=== PATIENT | female | born 1990 | race Hispanic/Latino ===

== ENCOUNTER 2025-02-06 10:57 | Inpatient (IN) | payer OTHER ==
[~2025-02-06] VITALS: Ht 157.5 cm; Wt 52.3 kg
[2025-02-06] VITALS (23 sets, daily range): BP systolic 104–124; BP diastolic 63–73; PULSE 78–100; RESP 15–19; TEMP 97.6–98.5; O2SAT 99–100
[~2025-02-06 10:57] MED LIST: CHOL50004 PO; GLUC500T12 PO; MILK175C5 PO; OMEGA3 PO; PRAS25CA9 PO; THIO300C PO
[2025-02-06 11:30] LABS: IMMATURE GRANULOCYTE ABSOLUTE 0.02 K/uL (0-1); NUCLEATED RED BLOOD CELLS 0.0 % (0.0-0.19); PLATELET COUNT (AUTO) 415 K/uL (130-400); RED BLOOD CELL COUNT(AUTO) 3.72 MIL/uL (4.00-5.50); RED CELL DISTRIBUTION WIDTH 19.8 % (11.0-15.5); WHITE BLOOD COUNT (AUTO) 8.1 K/uL (4.8-10.8)
[2025-02-06 11:37] LABS: INR 1.12 (0.85-1.15)
[2025-02-06 11:39] LABS: CREATININE 0.4 mg/dL (0.5-1.0); GLOMERULAR FILTR. RATE CALC 133.0 mL/min (>90); GLUCOSE,RANDOM 91.0 mg/dL (70-105); SODIUM SERUM 138.0 mmol/L (136-145); UREA NITROGEN, BLOOD 23.0 mg/dL (7-18)
[2025-02-06] MEDS: 0.9%NACL 1000ML 1,000 ML IV ONE (11:46)
[2025-02-06 11:52] LABS: ASPARTATE AMINOTRANSFERASE 252.0 U/L (10-37); CREATINE KINASE, TOTAL 114.0 U/L (21-232); TOTAL PROTEIN, SERUM 8.3 g/dL (6.0-8.3)
--- NOTE | 2025-02-06 12:50 | NUR ---
GI DR CHANG CONSULTED ORDERS RECIEVED
--- NOTE | 2025-02-06 13:14 | HP ---
[facility] H[facility]ORY [facility] PHYS[facility] Date of Service: Feb 06, 2025 Time of Service: 13:14 HISTORY OF PRESENT ILLNESS: Date of service: 02/06/2025, patient was seen in ER room 13 34-year-old female with underlying history of ulcerative colitis currently not on any medication therapy, prior history of variceal bleed in 2022, anemia presented to the ER for further evaluation of tarry stool. Symptoms started close to 7:00 a.m. today and patient reports having three episodes of tarry stool. Denies any coffee-ground emesis, hematemesis or hematochezia. Patient is followed by Dr. Burrows with Gastroenterology as outpatient. Has a previous history of upper GI bleed in 2022 requiring variceal banding. She denies previously being diagnosed with liver cirrhosis. Denies any alcohol history. She reports having family history of liver disease with father needing liver transplantation. She thinks that father had history of fatty liver disease. Patient reports having had history of ulcerative colitis since 2009. Reports that UC symptoms have been in remission over the last 4 years. She is currently doing dietary and lifestyle modification for management of ulcerative colitis. Denies having had any UC flare recently. She denies taking any medications for ulcerative colitis. She has not seen Dr. Burrows for about two year in clinic. Reports having had some mild dizziness today with tarry stool. Denies any syncope or falls. On presentation to the hospital, patient was noted to be afebrile with T-max of 98.2 F, heart rate of 104, blood pressure 116/66. Labs on presentation showed WBC count of 8100, hemoglobin of 8.8, MCV of 73.1, platelet count of 212907. CMP remarkable for sodium 138, potassium 4.3, BUN of 23, creatinine of 0.4, bilirubin of 1.1, AST of 252, ALT of 169, alkaline phosphatase of 644, lipase of 62. Patient will be admitted for further management of upper GI bleed concerns for variceal bleeding. She will undergo further workup to rule out cirrhosis of the liver. Consultation with GI has been requested with Dr. Burrows in the ER with plans for upper endoscopy today. Patient will be kept strictly NPO, she will receive IV fluids, IV octreotide, IV Protonix infusion. H&H will be monitored serially as well. REVIEW OF SYSTEMS CONSTITUTIONAL: Denies fevers, chills, or night sweats. No unintentional weight loss reported. NEUROLOGICAL: Denies headache, amaurosis fugax, motor weakness, sensory deficit, vertigo/spinning sensation, gait abnormalities, or tremors. ENT: No hearing loss, otalgia, otorrhea, rhinitis, rhinorrhea, hoarseness, or sore throat. CARDIOVASCULAR: Denies any exertional angina, dyspnea on exertion, orthopnea, paroxysmal nocturnal dyspnea, palpitations, life-threatening arrhythmias, claudication. PULMONARY: Denies any shortness of breath, cough, phlegm/sputum, hemoptysis, pleuritic chest pain. SLEEP: Denies morning headaches, daytime somnolence or napping. Denies difficulty falling asleep, staying asleep, waking from sleep. Denies knowledge of snoring. GASTROINTESTINAL: Reports having had tarry stool three episodes today, reports having history of varices, history of ulcerative colitis previously GENITOURINARY: Denies frequency, urgency, nocturia, hematuria or incontinence (Storage/Irritative symptoms.) Low urinary stream, straining to void, urinary intermittency or hesitancy, splitting of the voiding stream, terminal dribbling. ENDOCRINOLOGIC: Denies polyuria, polydipsia, polyphagia or heat/cold intoleran jean. HEMATOLOGIC: Denies thrombophilia/previous clots, or coagulopathy/bleeding disorders. ONCOLOGIC: Denies personal history of malignancy. DERMATOLOGIC: Denies rashes or pruritus. PSYCHIATRIC: Denies any suicidal or homicidal ideation. Denies hallucinations. PAST MEDICAL HISTORY: History of variceal bleed requiring banding in 2022, ulcerative colitis, history of anemia, she has been previously told that her liver enzymes are abnormal PAST SURGICAL HISTORY: Upper endoscopy in 2022, colonoscopies for surveillance for ulcerative colitis previously, history of rhinoplasty PAST SOCIAL HISTORY: Patient denies any previous significant alcohol consumption, denies any active alcohol use, denies any illicit drug use FAMILY HISTORY: Family history of liver disease with father requiring liver transplantation due to liver cirrhosis possibly from fatty liver disease Allergies: Patient reports having adverse reaction to propofol Coded Allergies: ceftriaxone (Verified Allergy, Intermediate, hives, 02/06/25) propofol (Unverified Allergy, Intermediate, HIVES, 07/12/17) PHYSICAL EXAM GENERAL APPEARANCE: The patient is awake, alert, and oriented, in no acute cardiopulmonary distress, appears debilitated NEUROLOGICAL: Cranial nerves II-XII grossly intact. Motor is 5/5 in bilateral upper and lower extremities proximal to distal. No sensory deficits. HEENT: Face is symmetric. Pupils are equal and reactive. Extraocular movements are intact. NECK: Supple. No JVD. No thyromegaly. No submental, submandibular, pre- /postauricular, occipital or supraclavicular lymphadenopathy. CHEST: Normal chest expansion. No Telemetry. LUNGS: Absence of any rales, rhonchi or any wheezing. CARDIOVASCULAR: Regular. S1 and S2 normal. No appreciable rubs, murmurs or gallops. ABDOMEN: Soft, nontender, and nondistended. There is no rebound, voluntary guarding, or rigidity. : Deferred. No [place]. EXTREMITIES: Non-edematous and not cyanotic. No clubbing. Good capillary refill. SKIN: No skin breakdown. Vital Sign (Last 24 Hours) 02/06/25 11:39 Temp 98.2 Pulse 87 Resp 18 B/P (MAP) 101/62 Pulse Ox 100 O2 Delivery Room Air* O2 Flow Rate 0 FiO2 21 LABS: Laboratory: Test 02/06/25 11:19 Range/Units White Blood Count 8.1 4.8-10.8 K/uL Red Blood Count 3.72 L 4.00-5.50 MIL/uL Hemoglobin 8.8 L 12.0-16.0 g/dL Hematocrit 27.2 L 36-48 % Mean Corpuscular Volume 73.1 L 79-99 fL Mean Corpuscular Hemoglobin 23.7 L 27.0-33.0 pg Mean Corpuscular Hemoglobin Concent 32.4 32.0-36.0 g/dL Red Cell Distribution Width 19.8 H 11.0-15.5 % Platelet Count 415 H 130-400 K/uL Mean Platelet Volume 10.3 7.5-10.5 fL Immature Granulocyte % (Auto) 0.2 0-1 % Neutrophils (%) (Auto) 69.9 40.0-77.0 % Lymphocytes (%) (Auto) 18.9 L 21.0-51.0 % Monocytes (%) (Auto) 7.6 3.0-13.0 % Eosinophils (%) (Auto) 2.3 0.0-8.0 % Basophils (%) (Auto) 1.1 0.0-5.0 % Neutrophils # (Auto) 5.7 1.8-7.7 K/uL Lymphocytes # (Auto) 1.5 1.0-4.8 K/uL Monocytes # (Auto) 0.6 0.1-1.0 K/uL Eosinophils # (Auto) 0.19 0.00-0.70 K/uL Basophils # (Auto) 0.09 0.00-0.20 K/uL Absolute Immature Granulocyte (auto 0.02 0-1 K/uL Nucleated Red Blood Cells 0.0 0.0-0.19 % Red Blood Cell Morphology See comments Prothrombin Time 11.7 H 9.6-11.6 SEC Prothromb Time International Ratio 1.12 0.85-1.15 Activated Partial Thromboplast Time 27.3 26.3-35.5 SEC Sodium Level 138 136-145 mmol/L Potassium Level 4.3 3.5-5.1 mmol/L Chloride Level 106 101-111 mmol/L Carbon Dioxide Level 21 21-32 mmol/L Blood Urea Nitrogen 23 H 7-18 mg/dL Creatinine 0.4 L 0.5-1.0 mg/dL Glomerular Filtration Rate Calc 133 >90 mL/min Random Glucose 91 70-105 mg/dL Lactic Acid Level 1.5 0.8-2.5 mmol/L Total Calcium 8.5 8.5-10.1 mg/dL Total Bilirubin 1.1 H 0.2-1.0 mg/dL Direct Bilirubin 0.7 H 0.0-0.3 mg/dL Aspartate Amino Transf (AST/SGOT) 252 H 10-37 U/L Alanine Aminotransferase (ALT/SGPT) 169 H 12-78 U/L Alkaline Phosphatase 644 *H 50-136 U/L Total Creatine Kinase 114 21-232 U/L Troponin I High Sensitivity 7 4-50 ng/L Total Protein 8.3 6.0-8.3 g/dL Albumin 2.8 L 3.5-5.0 g/dL Lipase 62 16-77 U/L Current Medications Medications (Trade) Dose Ordered Sig/Arina Route PRN Reason Start Time Stop Time Status Last Admin Dose Admin Acetaminophen (TYLenol 325MG TAB) 650 mg Q6H PRN PO MILD PAIN (1-3) 02/06/25 13:30 03/08/25 13:29 Ceftriaxone Sodium (ROCEphine 1G INJ) 1 gm DAILY IVPB 02/07/25 09:00 02/17/25 08:59 Ceftriaxone Sodium (Rocephin 2gm Inj) 2 gm ONCE STAT IVPB 02/06/25 11:05 02/06/25 11:09 DC 02/06/25 11:46 2 GM Dextrose/Sodium Chloride 1,000 ml @ 75 mls/hr [id number] IV 02/06/25 13:00 03/08/25 12:59 Midodrine (PROAMatine 5 MG TABLET) 5 mg TID PRN PO FOR BP LESS THAN 90/60 02/06/25 13:30 03/08/25 13:29 Multivitamins Therapeutic (Multivitamin Tablet) 1 tab DAILY PO 02/07/25 09:00 03/09/25 08:59 Octreotide Acetate 1250 mcg/ Sodium Chloride 250 ml @ 0 mls/hr PROTOCOL IV 02/06/25 13:00 03/08/25 12:59 Ondansetron HCl (zoFRAN 4MG INJ) 4 mg ONCE STAT IVP 02/06/25 11:05 02/06/25 11:09 DC 02/06/25 11:46 4 MG Ondansetron HCl (zoFRAN 4MG INJ) 4 mg Q6H PRN IVP NAUSEA/VOMITING 02/06/25 13:30 03/08/25 13:29 Pantoprazole Sodium (PROTonix 40MG INJ) 80 mg ONCE STAT IVP 02/06/25 11:05 02/06/25 11:09 DC 02/06/25 11:46 80 MG Pantoprazole Sodium 80 mg/ Sodium Chloride 100 ml @ 10 mls/hr Q10H IV 02/06/25 13:00 03/08/25 12:59 Thiamine HCl (Vitamin B-1) 100 mg DAILY IVP 02/07/25 09:00 03/09/25 08:59 DIAGNOSTICS / RADIOLOGY: Abdominal US of the liver is pending ASSESSMENT: Upper GI blood loss anemia, POA Suspected variceal bleeding, POA Acute on iron deficiency chronic anemia, POA Rule out decompensated cirrhosis of the liver, POA Abnormal LFTs, POA Family history of liver disease with father requiring liver transplantation, POA History of ulcerative colitis currently not on medication management, POA History of variceal bleeding in 2022 requiring banding, POA Possible allergic to Rocephin with hives in the ER Hx of allegic reaction to Propofol, POA PLAN: Patient will be admitted to cardiac telemetry metoprolol We will monitor blood pressure closely, we will maintain map greater than 65, we will place orders for midodrine 5 mg t.i.d. p.r.n. case blood pressure is less than 90/60 We will start patient on IV fluids with D5/NS at 75 mls/hr, we will keep patient NPO today We will start patient on octreotide infusion, Protonix drip Patient received IV Rocephin in the ER and she developed hives to the face, robles griggs will receive IV Benadryl, we will monitor closely, we will switch to IV levofloxacin 500 mg daily for SBP prophylaxis H&H will be monitored serially, transfuse to maintain hemoglobin greater than seven Patient has a history of ulcerative colitis which puts her at risk of having primary sclerosing cholangitis and other liver disorders, we will obtain further workup for liver disease including AMA, SMA, ANCA serologies, VADIM, IGG4 etc. iron panel, serum ceruloplasmin level, viral hepatitis panel Consultation with GI has been requested with Dr. Burrows with plans for upper endoscopy today If iron is significantly low, we will start patient on IV iron sucrose infusion tomorrow We will follow up results of abdominal ultrasound with Doppler, we will obtain a CT abdomen pelvis for further evaluation, we will also consider MRCP in the next 24-48 hours given significantly elevated alkaline phosphatase of 644 All labs will be repeated in the morning We will see how patient progresses in the next 24-48 hours, discussed to ensure compliance with outpatient follow up with GI, patient verbalized understanding, we will keep patient on thiamine and multivitamin supplementation Prognosis: Guarded Plan of care was discussed with patient and mother at bedside, Devang Berry MD Advanced Care Planning: Which of the following were discussed: Hospice care: Yes __ No _X_ Therapeutic options: Yes _X_ No __ Advance directives: Yes _X_ No __ Other discussions: Discussed with who?: Patient Voluntary nature of this service was explained to the patient? Yes _x_ No __ Amount of time spent: 20 minutes DEVANG BERRY MD Feb 06, 2025 13:14 REFUGIO PARKP Feb 06, 2025 16:03
--- NOTE | 2025-02-06 13:34 | ERN ---
ED Note History of Present Illness Stated Complaint: TARRY STOOL, CONCERN FOR GI BLEED, HX OF VARICES Chief Complaint: Tarry Stool Time Seen by MD: 11:04 Dictation: 34-year-old female presenting to the emergency department for dark stools patient reported history of GI problems including esophageal varices and liver problems with the had not established a final diagnosis . Patient sees Dr. Burrows Allergies: Coded Allergies: propofol (Unverified Allergy, Intermediate, HIVES, 07/12/17) Home Meds Reported Medications Alpha Lipoic Acid (Alpha Lipoic Acid) 300 Mg Capsule, 300 MG PO DAILY, CAP 07/12/17 Glucosamine HCl (Glucosamine HCl) 500 Mg Tablet, 500 MG PO DAILY, TAB 07/12/17 Milk Thistle Seed Extract (Milk Thistle) 175 Mg Capsule, 175 MG PO DAILY, CAP 07/12/17 Cholecalciferol (Vitamin D3) 5,000 Unit Capsule, 5000 UNIT PO DAILY, CAP 07/12/17 Prasterone (Dhea) (Dhea 25) 25 Mg Capsule, 25 MG PO DAILY, CAP 07/12/17 [Omega3] No Conflict Check, 1200 MG PO DAILY 07/12/17 Past Medical History Past Medical History: Liver Disease Additional Past Medical Hx: ULCERTIVE COLITIS, ESOPHAGEAL VARICES Surgical History: Other Review of System Dictation Constitutional: Negative for fever,chills, and weight loss Eyes: Negative for injury, pain,redness, and discharge ENT: Negative for injury,pain or swelling Cardiovascular: Negative for chest pain, palpitations, and edema Respiratory: Negative for shortness of breath, cough, and wheezing, Abdomen/GI: Per HPI : Negative for injury, bleeding and discharge MS/Extremity: Negative for injury and deformity Skin: Negative for rash, and discoloration Neuro: Negative for headache, weakness, numbness, tingling, and seizure Psych: Negative for suicide ideation, homicidal ideation, and hallucinations Initial Vital Sign VS Vital Signs Date Time Temp Pulse Resp B/P (MAP) Pulse Ox O2 Delivery O2 Flow Rate FiO2 02/06/25 10:59 98.2 104 20 116/66 99 Room Air 02/06/25 11:39 0 21 Physical Exam Dictation General: awake, alert, NAD Head/Face: Normocephalic, atraumatic Eyes: PERRL, EOMI, vision at baseline ENT: oral cavity clear, TMs clear, no signs of infection Neck: Trachea midline, supple, no nuchal rigidity Cardiovascular: RRR, normal S1/S2, No MRGs, no JVD Respiratory: CTAB, no respiratory distress, No rales or wheezes Abdomen: Soft, non-tender, non-distended, normal bowel sounds, no guarding or rebound. Skin: Warm, dry, normal turgor, no rash MS/Extremity: Pulses equal, no cyanosis, neurovascular intact, FROM Neuro: COAx4, GCS 15, strength 5/5, CN 2-12 intact, normal cerebellar exam, normal gait, Psych: Normal behavior, mood, and affect normal Results (Laboratory/Radiology) Laboratory/Radiology Laboratory Tests Test 02/06/25 11:19 White Blood Count 8.1 K/uL (4.8-10.8) Red Blood Count 3.72 MIL/uL (4.00-5.50) L Hemoglobin 8.8 g/dL (12.0-16.0) L Hematocrit 27.2 % (36-48) L Mean Corpuscular Volume 73.1 fL (79-99) L Mean Corpuscular Hemoglobin 23.7 pg (27.0-33.0) L Mean Corpuscular Hemoglobin Concent 32.4 g/dL (32.0-36.0) Red Cell Distribution Width 19.8 % (11.0-15.5) H Platelet Count 415 K/uL (130-400) H Mean Platelet Volume 10.3 fL (7.5-10.5) Immature Granulocyte % (Auto) 0.2 % (0-1) Neutrophils (%) (Auto) 69.9 % (40.0-77.0) Lymphocytes (%) (Auto) 18.9 % (21.0-51.0) L Monocytes (%) (Auto) 7.6 % (3.0-13.0) Eosinophils (%) (Auto) 2.3 % (0.0-8.0) Basophils (%) (Auto) 1.1 % (0.0-5.0) Neutrophils # (Auto) 5.7 K/uL (1.8-7.7) Lymphocytes # (Auto) 1.5 K/uL (1.0-4.8) Monocytes # (Auto) 0.6 K/uL (0.1-1.0) Eosinophils # (Auto) 0.19 K/uL (0.00-0.70) Basophils # (Auto) 0.09 K/uL (0.00-0.20) Absolute Immature Granulocyte (auto 0.02 K/uL (0-1) Nucleated Red Blood Cells 0.0 % (0.0-0.19) Red Blood Cell Morphology See comments Prothrombin Time 11.7 SEC (9.6-11.6) H Prothromb Time International Ratio 1.12 (0.85-1.15) Activated Partial Thromboplast Time 27.3 SEC (26.3-35.5) Sodium Level 138 mmol/L (136-145) Potassium Level 4.3 mmol/L (3.5-5.1) Chloride Level 106 mmol/L (101-111) Carbon Dioxide Level 21 mmol/L (21-32) Blood Urea Nitrogen 23 mg/dL (7-18) H Creatinine 0.4 mg/dL (0.5-1.0) L Glomerular Filtration Rate Calc 133 mL/min (>90) Random Glucose 91 mg/dL (70-105) Lactic Acid Level 1.5 mmol/L (0.8-2.5) Total Calcium 8.5 mg/dL (8.5-10.1) Total Bilirubin 1.1 mg/dL (0.2-1.0) H Direct Bilirubin 0.7 mg/dL (0.0-0.3) H Gamma Glutamyl Transpeptidase 510 U/L (5-85) H Aspartate Amino Transf (AST/SGOT) 252 U/L (10-37) H Alanine Aminotransferase (ALT/SGPT) 169 U/L (12-78) H Alkaline Phosphatase 644 U/L (50-136) *H Total Creatine Kinase 114 U/L (21-232) Troponin I High Sensitivity 7 ng/L (4-50) Total Protein 8.3 g/dL (6.0-8.3) Albumin 2.8 g/dL (3.5-5.0) L Lipase 62 U/L (16-77) Serum Test, Qualitative NEGATIVE (NEGATIVE) Labs Reviewed?: Yes ED Course ED Course Orders Procedure Category Date Status Time 12 Lead Ekg Tracing- EKG 02/06/25 Logged Technical 11:05 Basic Metabolic Panel LAB 02/06/25 Complete 11:05 Blood Cult DEIRDRE 02/06/25 In Process 11:05 Cbc With Differential LAB 02/06/25 Complete 11:05 Hepatic Function Panel LAB 02/06/25 Complete 11:05 Creatine Kinase, Total LAB 02/06/25 Complete 11:05 Lactic Acid LAB 02/06/25 Complete 11:05 Lipase LAB 02/06/25 Complete 11:05 Pt And Ptt LAB 02/06/25 Complete 11:05 Troponin I High LAB 02/06/25 Complete Sensitivity 11:05 Pantoprazole 40mg Inj PHA 02/06/25 Complete (Protonix 40mg Inj 11:05 Ceftriaxone 2gm Vial PHA 02/06/25 Complete (Rocephin 2gm Inj) 11:05 Ondansetron 4mg Inj PHA 02/06/25 Complete (Zofran 4mg Inj) 11:05 0.9%Nacl 1000ml (Ns PHA 02/06/25 Complete 1000ml) 11:30 Gastroenterology CONPHYSVC 02/06/25 Transmitted Consult 12:46 Us Abdominal Complete US 02/06/25 Logged 12:55 Octreotide Acetate PHA 02/06/25 In Process (Sandostatin) 13:00 Octreotide Acetate PHA 02/06/25 Complete (Sandostatin) 13:00 Pantoprazole 40mg Inj PHA 02/06/25 In Process (Protonix 40mg Inj 13:00 Dextrose 5 % And 0.9 PHA 02/06/25 In Process % Nacl (D5ns) 13:00 Telemetry Monitoring CPOE 02/06/25 Transmitted 12:56 Hemoglobin And LAB 02/06/25 Logged Hematocrit 14:00 Hemoglobin And LAB 02/06/25 Logged Hematocrit 20:00 Hemoglobin And LAB 02/07/25 Verified Hematocrit 08:00 Gamma Glutamyl LAB 02/06/25 Complete Transferase 12:56 Admit Orders ADM 02/06/25 Transmitted 12:56 Ceftriaxone 1g Vial PHA 02/07/25 In Process (Rocephine 1g Inj) 09:00 Keep Patient Npo CPOE 02/06/25 Transmitted 13:00 Urinalysis Profile LAB 02/06/25 Logged 13:00 Testing, LAB 02/06/25 Complete Serum Hcg 13:00 Type And Screen BBK 02/06/25 In Process 14:00 Maintain Iv CPOE 02/06/25 Transmitted 13:00 Insert 2 Large Bore CPOE 02/06/25 Transmitted IVs 13:00 *Nursing CPOE 02/06/25 Transmitted Communication: 13:00 Scd Both Legs While CPOE 02/06/25 Transmitted In Bed 13:02 Multivitamin Tablet PHA 02/07/25 In Process (Multivitamin Tablet 09:00 Thiamine Hcl (Vitamin PHA 02/07/25 In Process B-1) 09:00 Daily Weights CPOE 02/06/25 Transmitted 13:02 I&O Q Shift CPOE 02/06/25 Transmitted 13:02 Condition: CPOE 02/06/25 Transmitted 13:02 Activity: Br W/Brp CPOE 02/06/25 Transmitted With Assist 13:02 Nothing By Mouth DIET 02/06/25 Transmitted Lunch Apply Scds CPOE 02/06/25 Transmitted 13:02 Cbc With Differential LAB 02/07/25 Verified 04:00 Comprehensive LAB 02/07/25 Verified Metabolic Panel 04:00 Ferritin LAB 02/07/25 Verified 04:00 Comfort Profile W/Reflex LAB 02/07/25 Verified 04:00 Mitochondrial M2 Ab LAB 02/07/25 Verified IGG 04:00 F-Actin (Smooth LAB 02/07/25 Verified Muscle) Ab Igg 04:00 Soluble Liver Ag LAB 02/07/25 Verified Antibody-Igg 04:00 Ceruloplasmin LAB 02/07/25 Verified 04:00 Anti-Neutrophil LAB 02/07/25 Verified Cytoplasm Ab 04:00 Immunoglobulin G LAB 02/07/25 Verified Subclass 4 04:00 Fall Precautions CPOE 02/06/25 Transmitted 13:04 Aspiration Precautions CPOE 02/06/25 Transmitted 13:04 Elevate Hob At 30 CPOE 02/06/25 Transmitted Degrees 13:04 Acetaminophen 325 Tab PHA 02/06/25 In Process (Tylenol 325mg Tab 13:30 Ondansetron 4mg Inj PHA 02/06/25 In Process (Zofran 4mg Inj) 13:30 Midodrine Hcl 5 Mg PHA 02/06/25 In Process Tablet (Proamatine 5 13:30 Iron Panel With %Sat LAB 02/07/25 Verified 04:00 H&H Prn For Bleeding CPOE 02/06/25 Transmitted 13:13 Current Medications Medications (Trade) Dose Ordered Sig/Arina Route PRN Reason Start Time Stop Time Status Last Admin Dose Admin Ceftriaxone Sodium (Rocephin 2gm Inj) 2 gm ONCE STAT IVPB 02/06/25 11:05 02/06/25 11:09 DC 02/06/25 11:46 Ondansetron HCl (zoFRAN 4MG INJ) 4 mg ONCE STAT IVP 02/06/25 11:05 02/06/25 11:09 DC 02/06/25 11:46 Pantoprazole Sodium (PROTonix 40MG INJ) 80 mg ONCE STAT IVP 02/06/25 11:05 02/06/25 11:09 DC 02/06/25 11:46 Sodium Chloride 1,000 ml @ 0 mls/hr ONCE ONCE IV 02/06/25 11:30 02/06/25 11:31 DC 02/06/25 11:46 Vital Signs Date Time Temp Pulse Resp B/P (MAP) Pulse Ox O2 Delivery O2 Flow Rate FiO2 02/06/25 11:39 98.2 87 18 101/62 100 Room Air* 0 21 02/06/25 10:59 98.2 104 20 116/66 99 Room Air Medical Decision Making MDM MDM: Differential diagnosis: Rationale: Tests considered and ordered secondary to shared decision making include: labs, ECG and radiology Previous outside records reviewed: Old ER visits. Risk of complication and/or morbidity or mortality of patient management: None Medications-Per medication reconciliation Need for hospitalization: Patient does meet criteria for hospitalization. Need for emergency major/minor surgery: No There are no social concerns with this patient. Prescription drug management Prescriptions will include symptomatic care Patient's prior external medical records from other ER visits were reviewed by me as indicated. Prior testing and results from previous visits were reviewed. Prior tests were taken into account with medical decision making and resource utilization, independent historian/historians were used to obtain complete medical history. I independently interpreted the test that were performed, results were reviewed by me and considered findings on radiology if ordered. Medical management and examination interpretation discussions were had by me with other qualified healthcare professionals as indicated for the patient's care. 34-year-old female Sunday with GI bleed, concern for intrinsic liver disease, admitting to Medicine with GI consultation for further care and evaluation currently hemodynamically stable no active bleeding Critical Care Note Comment(s) Total critical care time was 33 minutes. Excluding time for procedures. Management of critically ill patient with concern for acute decompensation. Management included interpretation of laboratory values and imaging, hemodynamics, time for consultation with consultants and admitting physician. DX & DISP Disposition: Inpatient Departure Impression: Primary Impression: Upper GI hemorrhage Condition: Stable Referrals: GEMMA THOMASON MD (PCP) DERIAN GAVIN MD Feb 06, 2025 13:34
[2025-02-06] MEDS: DEXTROSE 5 % AND 0.9 % NACL 1,000 ML IV SCH (13:47)
--- NOTE | 2025-02-06 15:15 | EKG ---
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
[2025-02-06] MEDS ORDERED: AZITHROMYCIN 500MG+NS 250ML 250 ML IVPB ONE (15:30)
--- NOTE | 2025-02-06 15:40 | HMCIMG ---
US ABDOMINAL COMPLETE REASON: Upper GI bleed, assess for cirrhosis, perform with portal doppler COMPARISON: None FINDINGS: Liver has lobulated contour with coarse echotexture with nodular changes suggesting of cirrhosis. The liver length is 14.1 cm.. There are no focal mass lesions. The liver is not enlarged. The portal vein has a hepatopetal. Flow There is a normal-appearing gallbladder. The gallbladder wall thickness is 0.3 cm. The common bile duct measures 0.5 cm. The common bile duct measures 0.5 cm. Kidneys appear normal in size and appearance. The right kidney measures 10.2 x 4.5 x 4.4 cm and the left kidney measures 11.7 x 4.4 x 4.6 cm. There is no evidence of mass, stone or hydronephrosis. Spleen and common duct appear normal. Aorta and inferior vena cava appear normal. The pancreas appears normal as well. The tail of the pancreas is obscured by overlying bowel gas. IMPRESSION: Liver has lobulated contour suggesting of cirrhosis Otherwise a normal abdominal sonogram..
--- NOTE | 2025-02-06 15:46 | NUR ---
DCP:HOME Pt currently lives with her boyfriend. Pt does not currently have any DME, home health, or provider services. Pt states that she is able to complete ADLs independently. Pt does not have a PCP however she just got her insurance 2 days ago and will be looking for a PCP. At [place] pt will want to go home and family can assist with transportation. Addendum: 02/06/25 at 1554 by RAY CONTRERAS SS Amended: Links added.
[2025-02-06] MEDS: AZITHROMYCIN 500 MG IVPB ONE (15:57)
[2025-02-06] MEDS: [UNRECOGNIZED DRUG - OTHER] IVPB ONE (15:57)
--- NOTE | 2025-02-06 16:12 | NUR ---
GI LAB HERE WITH PATIENT AT BEDSIDE. PT LEFT TO GI LAB FOR EGD
--- NOTE | 2025-02-06 21:38 | CONS ---
GASTROENTEROLOGY CONSULTATION DATE OF CONSULTATION: 02/06/2025 ADMITTING PHYSICIAN: Dr. Devang Berry. REASON FOR CONSULTATION: GI bleed with melena and acute blood loss anemia with history of hepatic cirrhosis and esophageal varices. HISTORY OF PRESENT ILLNESS: The patient is a 34-year-old female with history of ulcerative colitis and hepatic cirrhosis with known esophageal varices, who was admitted earlier with melena and acute blood loss anemia plus nausea for which GI evaluation and management is sought. According to the patient, she began to experience episodes of melena earlier this a.m. and she also has episodes of nausea, but denies any vomiting, abdominal pain, constipation or hematochezia. She denies any recent antibiotic therapy, any abdominal trauma, but admits to recent NSAID use. She has no family history of colon cancer, stomach cancer or IBD, but her father had hepatic cirrhosis and possible PSC and is now status post liver transplant. PAST MEDICAL AND PAST SURGICAL HISTORY: The patient has had rhinoplasty and colonoscopy and EGD in the past. ALLERGIES: CEFTRIAXONE and questionable propofol. SOCIAL HISTORY: No alcohol use, tobacco use, or illicit drug use. FAMILY HISTORY: Significant for hepatic cirrhosis in her father, who also had prostate cancer. She has a family history of possible PSC in her father. There is family history of DM and hypertension, but no CAD, MS or CVA. The patient has a family history of ovarian cancer in a paternal grandmother. REVIEW OF SYSTEMS: CONSTITUTIONAL: The patient reports melena, nausea, has subsided now. She denies abdominal pain, fever or chills. OPHTHALMOLOGY: No recent vision change, eye pain, periorbital swelling, redness or drainage. ENT: No ear pain, tinnitus, hearing loss, nasal congestion, rhinorrhea, sore throat or voice changes. RESPIRATORY: She had shortness of air at admission, this has resolved now. She denies any chest congestion or cough. She reports occasional wheeze in the past. There is questionable history of asthma. CARDIOVASCULAR: She denies any chest pain or leg swelling. She reports palpitations. MUSCULOSKELETAL: No joint pain, joint swelling or backache. NEUROLOGY: No tingling, numbness, vision changes, hearing loss. PSYCHIATRY: No history of depression, anxiety, or suicidal plans or ideation. ENDOCRINOLOGY: No history of diabetes, thyroid disease, or hyperlipidemia to her knowledge. PHYSICAL EXAMINATION: GENERAL: The patient is a 34-year-old female, who appeared her stated age, seen resting in bed, in no acute respiratory distress. VITAL SIGNS: Blood pressure 102/61, heart rate 82, respirations 18, temperature 98.2 degrees Fahrenheit. SKIN: Warm, dry with no active dermatosis. HEENT: The patient's head was normocephalic, atraumatic. Pupils reactive. Sclerae are nonicteric. Oral mucosa was moist. No obvious lesion. No blood noted. Nasal mucosa showed no epistaxis, septal deviation or perforation. NECK: No obvious masses. No jugular venous distention. No lymphadenopathy or thyromegaly. LUNGS: Clear to auscultation bilaterally. HEART: S1 and S2. No obvious murmurs, rubs, or gallops auscultated. ABDOMEN: Symmetric, soft with active bowel sounds. No hepatomegaly, no masses. Mild tenderness noted in left lower abdominal quadrant. No rebound. No guarding noted. EXTREMITIES: No cyanosis, clubbing or edema. RECTAL: Deferred. LABORATORY DATA: WBC 8.1, hemoglobin 8.8, hematocrit 27.2, MCV of 73.1, platelet count of 415. PT 11.7, INR 1.12, aPTT of 27.3. Serum chemistry revealed sodium of 138, potassium 4.3, chloride of 106, CO2 of 21, BUN of 23, creatinine 0.4, GFR 133, random glucose of 91, lactic acid of 1.5, total calcium of 8.5, total bilirubin of 1.1, direct bilirubin of 0.7, GGT 510, AST 252, ALT 169, alkaline phosphatase 644, total creatinine kinase of 114, total protein of 8.3, albumin of 2.8, lipase of 62. Serum , qualitative test was negative. DIAGNOSTIC DATA: Ultrasound of the abdomen done showed lobulated liver contour with coarse echotexture with nodular changes suggesting cirrhosis. Liver length 14.1 cm. No focal mass lesions noted. Portal vein has hepatopetal flow. There is a normal-appearing gallbladder. Wall thickness is 0.3 cm, common bile duct measures 0.5 cm. Kidney appeared normal in size and appearance. Right kidney measured 10.2 x 4.5 x 4.4 cm, on the left was 11.7 x 4.4 x 4.6 cm. There is no evidence of mass, stone or hydronephrosis. Spleen and common duct appear normal. Aorta and inferior vena cava appear normal. Pancreas also normal. The tail of the pancreas is obscured by bowel gas, however. CT scan of abdomen and pelvis was done earlier and these results are pending. IMPRESSION: * Acute gastrointestinal bleed with melena and acute blood loss anemia, most likely from esophageal variceal bleed versus portal hypertensive gastropathy bleed versus angiodysplastic lesion or Dieulafoy's lesion of the upper gastrointestinal tract. * Elevated liver chemistry is likely secondary to hepatic cirrhosis and possible underlying primary sclerosing cholangitis. PLAN: * Give IV Protonix bolus and IV Sandostatin bolus and drip, both IVs. * Keep n.p.o. * Recommend EGD for further evaluation and management including possible banding of esophageal varices. * Continue to monitor CBC and transfuse PRBCs as needed to a hemoglobin of 7. * Obtain MRCP. * Check alpha-1 antitrypsin level, antinuclear antibody, anti-mitochondrial antibody, iron binding capacity, iron saturation, iron level and ferritin, also ceruloplasmin level and also P-ANCA, viral hepatitis B surface antibody, hepatitis B surface antigen, hepatitis B core antibody IgM, and hepatitis B core antibody total. Check HCV antibody and also HCV RNA via PCR with viral load and genotype/quantitative test, hepatitis A antibody total, hepatitis A antibody IgM, lipid panel, serum amylase and lipase. * Follow up with CMP in a.m. also. * Daily weights. * Recommend a colonoscopy also. * Further management to be decided on based on results from the above labs. The above labs and imaging studies were reviewed and discussed with this patient. The important physical findings on exam were also discussed with the patient. She verbalizes understanding of the above including the plan as listed and also verbalizes her agreement with this management plan. All questions were answered. Dr. Berry, thank you for allowing me to participate in the care of this patient. TID: [id number] RECEIPT: [id number] cc: Devang Berry MD
[2025-02-07] VITALS (9 sets, daily range): BP systolic 100–109; BP diastolic 56–74; PULSE 82–95; RESP 17–18; TEMP 98.1–98.3; O2SAT 98–99
--- NOTE | 2025-02-07 04:20 | NUR ---
late entry - H &H scheduled fo 0000 - hgb 6.6 - standing order s/p upper gi varicose varices ligation dx cirrhosis with chief complaint of tarry stools. patient has been having this for years and this is her 3rd time varicose vein bleeding. 1 unit transfusing vitals stale see vital sheet - no active bleed at this time denied tarry stools or emesis with blood. no pain voiced
[2025-02-07 09:03] LABS: IMMATURE GRANULOCYTE ABSOLUTE 0.02 K/uL (0-1); NUCLEATED RED BLOOD CELLS 0.0 % (0.0-0.19); PLATELET COUNT (AUTO) 317 K/uL (130-400); RED BLOOD CELL COUNT(AUTO) 3.38 MIL/uL (4.00-5.50); RED CELL DISTRIBUTION WIDTH 19.3 % (11.0-15.5); WHITE BLOOD COUNT (AUTO) 8.1 K/uL (4.8-10.8)
[2025-02-07 09:19] LABS: % IRON SATURATION 21.0 % (22-44); IRON, SERUM 49.0 mcg/dL (50-170)
[2025-02-07 10:01] LABS: ASPARTATE AMINOTRANSFERASE 165.0 U/L (10-37); CREATININE 0.5 mg/dL (0.5-1.0); GLOMERULAR FILTR. RATE CALC 126.0 mL/min (>90); GLUCOSE,RANDOM 88.0 mg/dL (70-105); SODIUM SERUM 140.0 mmol/L (136-145); TOTAL PROTEIN, SERUM 6.5 g/dL (6.0-8.3); UREA NITROGEN, BLOOD 10.0 mg/dL (7-18)
[2025-02-07] MEDS: MULTIVITAMIN TABLET PO SCH (10:33)
[2025-02-07] MEDS: THIAMINE HCL 100 MG/ML 2ML VIAL IVP SCH (10:34)
--- NOTE | 2025-02-07 17:44 | PN ---
[facility] PROGRESS NOTE Date of Service: Feb 07, 2025 Time of Service: 17:28 HISTORY OF PRESENT ILLNESS: Date of service: 02/06/2025, patient was seen in ER room 13 34-year-old female with underlying history of ulcerative colitis currently not on any medication therapy, prior history of variceal bleed in 2022, anemia presented to the ER for further evaluation of tarry stool. Symptoms started close to 7:00 a.m. today and patient reports having three episodes of tarry stool. Denies any coffee-ground emesis, hematemesis or hematochezia. Patient is followed by Dr. Jackson with Gastroenterology as outpatient. Has a previous history of upper GI bleed in 2022 requiring variceal banding. She denies previously being diagnosed with liver cirrhosis. Denies any alcohol history. She reports having family history of liver disease with father needing liver transplantation. She thinks that father had history of fatty liver disease. Patient reports having had history of ulcerative colitis since 2009. Reports that UC symptoms have been in remission over the last 4 years. She is currently doing dietary and lifestyle modification for management of ulcerative colitis. Denies having had any UC flare recently. She denies taking any medications for ulcerative colitis. She has not seen Dr. Jackson for about two year in clinic. Reports having had some mild dizziness today with tarry stool. Denies any syncope or falls. On presentation to the hospital, patient was noted to be afebrile with T-max of 98.2 F, heart rate of 104, blood pressure 116/66. Labs on presentation showed WBC count of 8100, hemoglobin of 8.8, MCV of 73.1, platelet count of 136969. CMP remarkable for sodium 138, potassium 4.3, BUN of 23, creatinine of 0.4, bilirubin of 1.1, AST of 252, ALT of 169, alkaline phosphatase of 644, lipase of 62. SUBJECTIVE: 02/07/2025: Patient was seen and evaluated in room 224. Patient underwent EGD and variceal banding by Dr. jackson last night. Patient reports feeling better today and was eager to find out when she will get discharged. Later in the afternoon she mentioned she passed on tarry stool. Patient was transfused one unit of Leukocyte reduced RBC yesterday after the EGD procedure. Hemoglobin trends before and after the transfusion was 6.6>8.2.Patient denies any Dizziness, hematemesis. She is scheduled for MRCP, will follow up with results. REVIEW OF SYSTEMS CONSTITUTIONAL: Denies fevers, chills, or night sweats. No unintentional weight loss reported. NEUROLOGICAL: Denies headache, amaurosis fugax, motor weakness, sensory deficit, vertigo/spinning sensation, gait abnormalities, or tremors. ENT: No hearing loss, otalgia, otorrhea, rhinitis, rhinorrhea, hoarseness, or sore throat. CARDIOVASCULAR: Denies any exertional angina, dyspnea on exertion, orthopnea, paroxysmal nocturnal dyspnea, palpitations, life-threatening arrhythmias, claudication. PULMONARY: Denies any shortness of breath, cough, phlegm/sputum, hemoptysis, pleuritic chest pain. SLEEP: Denies morning headaches, daytime somnolence or napping. Denies difficulty falling asleep, staying asleep, waking from sleep. Denies knowledge of snoring. GASTROINTESTINAL: Reports having had tarry stool three episodes today, reports having history of varices, history of ulcerative colitis previously GENITOURINARY: Denies frequency, urgency, nocturia, hematuria or incontinence (Storage/Irritative symptoms.) Low urinary stream, straining to void, urinary intermittency or hesitancy, splitting of the voiding stream, terminal dribbling. ENDOCRINOLOGIC: Denies polyuria, polydipsia, polyphagia or heat/cold intolerances. HEMATOLOGIC: Denies thrombophilia/previous clots, or coagulopathy/bleeding disorders. ONCOLOGIC: Denies personal history of malignancy. DERMATOLOGIC: Denies rashes or pruritus. PSYCHIATRIC: Denies any suicidal or homicidal ideation. Denies hallucinations. PHYSICAL EXAM GENERAL APPEARANCE: The patient is awake, alert, and oriented, in no acute cardiopulmonary distress, appears debilitated NEUROLOGICAL: Cranial nerves II-XII grossly intact. Motor is 5/5 in bilateral upper and lower extremities proximal to distal. No sensory deficits. HEENT: Face is symmetric. Pupils are equal and reactive. Extraocular movements are intact. NECK: Supple. No JVD. No thyromegaly. No submental, submandibular, pre- /postauricular, occipital or supraclavicular lymphadenopathy. CHEST: Normal chest expansion. No Telemetry. LUNGS: Absence of any rales, rhonchi or any wheezing. CARDIOVASCULAR: Regular. S1 and S2 normal. No appreciable rubs, murmurs or gallops. ABDOMEN: Soft, nontender, and nondistended. There is no rebound, voluntary guarding, or rigidity. : Deferred. No [place]. EXTREMITIES: Non-edematous and not cyanotic. No clubbing. Good capillary refill. SKIN: No skin breakdown. Vital Signs (last 8hr) Date Time Temp Pulse Resp B/P (MAP) Pulse Ox O2 Delivery O2 Flow Rate FiO2 02/07/25 16:00 98.2 95 18 108/66 100 Room Air 02/07/25 11:00 98.1 84 17 105/74 99 Room Air LABS: Laboratory: Test 02/07/25 16:20 02/07/25 08:48 02/06/25 11:19 Range/Units Hemoglobin 8.2 L 12.0-16.0 g/dL Hematocrit 25.0 L 36-48 % White Blood Count 8.1 4.8-10.8 K/uL Red Blood Count 3.38 L 4.00-5.50 MIL/uL Mean Corpuscular Volume 73.7 L 79-99 fL Mean Corpuscular Hemoglobin 24.3 L 27.0-33.0 pg Mean Corpuscular Hemoglobin Concent 32.9 32.0-36.0 g/dL Red Cell Distribution Width 19.3 H 11.0-15.5 % Platelet Count 317 130-400 K/uL Mean Platelet Volume 9.9 7.5-10.5 fL Immature Granulocyte % (Auto) 0.2 0-1 % Neutrophils (%) (Auto) 51.5 40.0-77.0 % Lymphocytes (%) (Auto) 27.9 21.0-51.0 % Monocytes (%) (Auto) 10.6 3.0-13.0 % Eosinophils (%) (Auto) 8.4 H 0.0-8.0 % Basophils (%) (Auto) 1.4 0.0-5.0 % Neutrophils # (Auto) 4.2 1.8-7.7 K/uL Lymphocytes # (Auto) 2.3 1.0-4.8 K/uL Monocytes # (Auto) 0.9 0.1-1.0 K/uL Eosinophils # (Auto) 0.68 0.00-0.70 K/uL Basophils # (Auto) 0.11 0.00-0.20 K/uL Absolute Immature Granulocyte (auto 0.02 0-1 K/uL Nucleated Red Blood Cells 0.0 0.0-0.19 % Sodium Level 140 136-145 mmol/L Potassium Level 3.5 3.5-5.1 mmol/L Chloride Level 109 101-111 mmol/L Carbon Dioxide Level 22 21-32 mmol/L Blood Urea Nitrogen 10 7-18 mg/dL Creatinine 0.5 0.5-1.0 mg/dL Glomerular Filtration Rate Calc 126 >90 mL/min Random Glucose 88 70-105 mg/dL Total Calcium 7.5 L 8.5-10.1 mg/dL Iron Level 49 L 50-170 mcg/dL Total Iron Binding Capacity 233 L 250-450 mcg/dL Percent Iron Saturation 21.0 L 22-44 % Ferritin 19 15-150 ng/mL Total Bilirubin 1.4 #H 0.2-1.0 mg/dL Aspartate Amino Transf (AST/SGOT) 165 H 10-37 U/L Alanine Aminotransferase (ALT/SGPT) 121 #H 12-78 U/L Alkaline Phosphatase 489 H 50-136 U/L Total Protein 6.5 # 6.0-8.3 g/dL Albumin 2.2 #L 3.5-5.0 g/dL Red Blood Cell Morphology See comments Prothrombin Time 11.7 H 9.6-11.6 SEC Prothromb Time International Ratio 1.12 0.85-1.15 Activated Partial Thromboplast Time 27.3 26.3-35.5 SEC Lactic Acid Level 1.5 0.8-2.5 mmol/L Direct Bilirubin 0.7 H 0.0-0.3 mg/dL Gamma Glutamyl Transpeptidase 510 H 5-85 U/L Total Creatine Kinase 114 21-232 U/L Troponin I High Sensitivity 7 4-50 ng/L Lipase 62 16-77 U/L Serum Test, Qualitative NEGATIVE NEGATIVE Current Medications Medications (Trade) Dose Ordered Sig/Arina Route PRN Reason Start Time Stop Time Status Last Admin Dose Admin Acetaminophen (TYLenol 325MG TAB) 650 mg Q6H PRN PO MILD PAIN (1-3) 02/06/25 13:30 03/08/25 13:29 Albuterol (DUOneb) 1 udvial Q6H PRN IH SHORTNESS OF BREATH 02/06/25 14:00 03/08/25 13:59 Ceftriaxone Sodium (ROCEphine 1G INJ) 1 gm DAILY IVPB 02/07/25 09:00 02/06/25 13:36 DC Ceftriaxone Sodium (Rocephin 2gm Inj) 2 gm ONCE STAT IVPB 02/06/25 11:05 02/06/25 11:09 DC 02/06/25 11:46 2 GM Dextrose/Sodium Chloride 1,000 ml @ 75 mls/hr [id number] IV 02/06/25 13:00 03/08/25 12:59 02/07/25 15:55 75 MLS/HR Diphenhydramine HCl (BENAdryl INJ) 25 mg Q8H PRN IV ITCHING/ hives 02/06/25 14:30 03/08/25 14:29 Levofloxacin/ Dextrose 100 ml @ 100 mls/hr DAILY IV 02/07/25 09:00 02/17/25 08:59 02/07/25 10:31 100 MLS/HR Midodrine (PROAMatine 5 MG TABLET) 5 mg TID PRN PO FOR BP LESS THAN 90/60 02/06/25 13:30 03/08/25 13:29 Multivitamins Therapeutic (Multivitamin Tablet) 1 tab DAILY PO 02/07/25 09:00 03/09/25 08:59 02/07/25 10:33 1 TAB Octreotide Acetate 1250 mcg/ Sodium Chloride 250 ml @ 0 mls/hr PROTOCOL IV 02/06/25 13:00 03/08/25 12:59 02/06/25 13:40 5 MLS/HR Ondansetron HCl (zoFRAN 4MG INJ) 4 mg ONCE STAT IVP 02/06/25 11:05 02/06/25 11:09 DC 02/06/25 11:46 4 MG Ondansetron HCl (zoFRAN 4MG INJ) 4 mg Q6H PRN IVP NAUSEA/VOMITING 02/06/25 13:30 03/08/25 13:29 Pantoprazole Sodium (PROTonix 40MG INJ) 80 mg ONCE STAT IVP 02/06/25 11:05 02/06/25 11:09 DC 02/06/25 11:46 80 MG Pantoprazole Sodium (PROTonix 40MG TAB) 40 mg DAILY PO 02/08/25 09:00 03/10/25 08:59 Pantoprazole Sodium 80 mg/ Sodium Chloride 100 ml @ 10 mls/hr Q10H IV 02/06/25 13:00 02/07/25 10:18 DC 02/06/25 23:25 10 MLS/HR Thiamine HCl (Vitamin B-1) 100 mg DAILY IVP 02/07/25 09:00 03/09/25 08:59 02/07/25 10:34 100 MG DIAGNOSTICS / RADIOLOGY: [place] [id number] [address] IMAGING REPORT Signed PATIENT: JANINE BUENO MR#: [id number] : 1990 SEX: F AGE: 34 LOCATION: [facility] ORDER 17 STATUS: ADM IN REPORT#: [id number] SERVICE 15 REASON: Upper GI bleed, assess for cirrhosis, perform with portal doppler ORDERING PHYSICIAN: YOLANDA AGOSTO MD PROCEDURE: ABDOMEN - US ABDOMINAL COMPLETE US ABDOMINAL COMPLETE REASON: Upper GI bleed, assess for cirrhosis, perform with portal doppler COMPARISON: None FINDINGS: Liver has lobulated contour with coarse echotexture with nodular changes suggesting of cirrhosis. The liver length is 14.1 cm.. There are no focal mass lesions. The liver is not enlarged. The portal vein has a hepatopetal. Flow There is a normal-appearing gallbladder. The gallbladder wall thickness is 0.3 cm. The common bile duct measures 0.5 cm. The common bile duct measures 0.5 cm. Kidneys appear normal in size and appearance. The right kidney measures 10.2 x 4.5 x 4.4 cm and the left kidney measures 11.7 x 4.4 x 4.6 cm. There is no evidence of mass, stone or hydronephrosis. Spleen and common duct appear normal. Aorta and inferior vena cava appear normal. The pancreas appears normal as well. The tail of the pancreas is obscured by overlying bowel gas. IMPRESSION: Liver has lobulated contour suggesting of cirrhosis Otherwise a normal abdominal sonogram.. DICTATED BY: PARUL GAVIRIA MD DATE: 02/06/25 1530 ELECTRONICALLY SIGNED BY: PARUL GAVIRIA MD DATE: 02/06/25 1540 ASSESSMENT: Variceal bleeding, POA Upper GI blood loss anemia, POA Acute on iron deficiency chronic anemia, POA Rule out decompensated cirrhosis of the liver, POA Abnormal LFTs, POA Family history of liver disease with father requiring liver transplantation, POA History of ulcerative colitis currently not on medication management, POA History of variceal bleeding in 2022 requiring banding, POA Possible allergic to Rocephin with hives in the ER Hx of allegic reaction to Propofol, POA PLAN: Variceal bleeding, POA: * H/O three episodes of esophageal variceal bleed with banding. * GI was consulted and EGD was done with banding by Dr. Jackson on 02/06/25. * One unit of Leukocyte reduced RBC was transfused after the procedure. Hemoglobin trends before and after the procedure 6.6>8.2. * Patient is on octreotide IV. Patient was started on IV fluids with D5/NS at 75 mls/hr. * Ceftriaxone 1gm was given on 02/06/25 developed hives, Ceftriaxone was stopped. Currently on levofloxacin (day 1) for SBP prophylaxis. * Patient is on Protonix drip. * Will monitor Hemoglobin and Hematocrit daily. Rule out decompensated cirrhosis of the liver, POA: * LFT from 02/06/25 results show GGT-510, AST-252>165, ALT-169>121, ALP- 644>489. Total bilirubin-1.4 * Abdominal USG was ordered, results show Liver has lobulated contour suggesting of cirrhosis * Abdominal CT was taken, pending report. * GI was consulted and are on the case, will follow their recommendations. * MRCP was ordered, awaiting results. * Further workup for liver disease including Anti Mitochondrial Antibody, Smooth Muscle Antibody, ANCA serologies, VADIM, IGG4, alpha-1 antitrypsin level, iron panel, serum ceruloplasmin level, viral hepatitis panel was ordered, will follow up on results * Will monitor with daily CMP. Acute on iron deficiency chronic anemia, POA * Anemia panel was ordered, results show Iron-49, TIBC-233, %saturation-21. * Started patient on IV Venofer. * Will monitor with daily labs Supportive measures: Will monitor blood pressure closely, we will maintain map greater than 65, we will place orders for midodrine 5 mg t.i.d. p.r.n. case blood pressure is less than 90/60 Started patient on IV fluids with D5/NS at 75 mls/hr, Started patient on thiamine and multivitamin supplementation. ATTESTATION BY PHYSICIAN I have seen and examined the patient. I reviewed the documentation, medical decision making, and treatment plan as noted by the resident physician above. I agree with the findings and plan of care. AUGUSTO ALEXANDER MD, SHAJI MD Feb 07, 2025 17:44
[2025-02-07] MEDS ORDERED: COMPOUND IV REFRIGERATED 1 EACH IVSOLN MISC PRN (18:30)
[2025-02-08] VITALS (9 sets, daily range): BP systolic 96–111; BP diastolic 55–66; PULSE 79–96; RESP 16–18; TEMP 97.8–98.5; O2SAT 96–99
[2025-02-08 03:40] LABS: IMMATURE GRANULOCYTE ABSOLUTE 0.02 K/uL (0-1); NUCLEATED RED BLOOD CELLS 0.0 % (0.0-0.19); PLATELET COUNT (AUTO) 326 K/uL (130-400); RED BLOOD CELL COUNT(AUTO) 3.29 MIL/uL (4.00-5.50); RED CELL DISTRIBUTION WIDTH 19.4 % (11.0-15.5); WHITE BLOOD COUNT (AUTO) 10.0 K/uL (4.8-10.8)
[2025-02-08 04:17] LABS: ASPARTATE AMINOTRANSFERASE 236.0 U/L (10-37); CREATININE 0.4 mg/dL (0.5-1.0); GLOMERULAR FILTR. RATE CALC 133.0 mL/min (>90); GLUCOSE,RANDOM 88.0 mg/dL (70-105); SODIUM SERUM 140.0 mmol/L (136-145); TOTAL PROTEIN, SERUM 6.6 g/dL (6.0-8.3); UREA NITROGEN, BLOOD 8.0 mg/dL (7-18)
--- NOTE | 2025-02-08 08:35 | PN ---
[facility] PROGRESS NOTE Date of Service: Feb 08, 2025 Time of Service: 08:35 HISTORY OF PRESENT ILLNESS: Date of service: 02/06/2025, patient was seen in ER room 13 34-year-old female with underlying history of ulcerative colitis currently not on any medication therapy, prior history of variceal bleed in 2022, anemia presented to the ER for further evaluation of tarry stool. Symptoms started close to 7:00 a.m. today and patient reports having three episodes of tarry stool. Denies any coffee-ground emesis, hematemesis or hematochezia. Patient is followed by Dr. Jackson with Gastroenterology as outpatient. Has a previous history of upper GI bleed in 2022 requiring variceal banding. She denies previously being diagnosed with liver cirrhosis. Denies any alcohol history. She reports having family history of liver disease with father needing liver transplantation. She thinks that father had history of fatty liver disease. Patient reports having had history of ulcerative colitis since 2009. Reports that UC symptoms have been in remission over the last 4 years. She is currently doing dietary and lifestyle modification for management of ulcerative colitis. Denies having had any UC flare recently. She denies taking any medications for ulcerative colitis. She has not seen Dr. Jackson for about two year in clinic. Reports having had some mild dizziness today with tarry stool. Denies any syncope or falls. On presentation to the hospital, patient was noted to be afebrile with T-max of 98.2 F, heart rate of 104, blood pressure 116/66. Labs on presentation showed WBC count of 8100, hemoglobin of 8.8, MCV of 73.1, platelet count of [id number]. CMP remarkable for sodium 138, potassium 4.3, BUN of 23, creatinine of 0.4, bilirubin of 1.1, AST of 252, ALT of 169, alkaline phosphatase of 644, lipase of 62. SUBJECTIVE: 02/07/2025: Patient was seen and evaluated in room 224. Patient underwent EGD and variceal banding by Dr. jackson last night. Patient reports feeling better today and was eager to find out when she will get discharged. Later in the afternoon she mentioned she passed on tarry stool. Patient was transfused one unit of Leukocyte reduced RBC yesterday after the EGD procedure. Hemoglobin trends before and after the transfusion was 6.6>8.2.Patient denies any Dizziness, hematemesis. She is scheduled for MRCP, will follow up with results. 02/08/25: Lying in bed at the time of evaluation. Alert and oriented and in no obvious distress. Patient states that she had 2 episodes of black tarry stool today. Vital signs are relatively unremarkable. Labs showed Hemoglobin 8 up from 6.6 yesterday, Hct 24.4, Potassium 3.1, will replace as per protocol. AST 236, ALT 135, Alkaline phosphatase 514. Abdominal ultrasound showed a liver which has a lobulated contour suggestive of cirrhosis. Patient had an MRCP done today. As per Dr Jackson, patient will be kept for 1 more day, no plans to scope at this time, and diet can be advanced as tolerated. Plan for discharge tomorrow. REVIEW OF SYSTEMS CONSTITUTIONAL: Denies fevers, chills, or night sweats. No unintentional weight loss reported. NEUROLOGICAL: Denies headache, amaurosis fugax, motor weakness, sensory deficit, vertigo/spinning sensation, gait abnormalities, or tremors. ENT: No hearing loss, otalgia, otorrhea, rhinitis, rhinorrhea, hoarseness, or sore throat. CARDIOVASCULAR: Denies any exertional angina, dyspnea on exertion, orthopnea, paroxysmal nocturnal dyspnea, palpitations, life-threatening arrhythmias, claudication. PULMONARY: Denies any shortness of breath, cough, phlegm/sputum, hemoptysis, pleuritic chest pain. SLEEP: Denies morning headaches, daytime somnolence or napping. Denies difficulty falling asleep, staying asleep, waking from sleep. Denies knowledge of snoring. GASTROINTESTINAL: Reports having had tarry stool two episodes today GENITOURINARY: Denies frequency, urgency, nocturia, hematuria or incontinence (Storage/Irritative symptoms.) Low urinary stream, straining to void, urinary intermittency or hesitancy, splitting of the voiding stream, terminal dribbling. ENDOCRINOLOGIC: Denies polyuria, polydipsia, polyphagia or heat/cold intolerances. HEMATOLOGIC: Denies thrombophilia/previous clots, or coagulopathy/bleeding disorders. ONCOLOGIC: Denies personal history of malignancy. DERMATOLOGIC: Denies rashes or pruritus. PSYCHIATRIC: Denies any suicidal or homicidal ideation. Denies hallucinations. PHYSICAL EXAM GENERAL APPEARANCE: The patient is awake, alert, and oriented, in no acute cardiopulmonary distress, appears debilitated NEUROLOGICAL: Cranial nerves II-XII grossly intact. Motor is 5/5 in bilateral upper and lower extremities proximal to distal. No sensory deficits. HEENT: Face is symmetric. Pupils are equal and reactive. Extraocular movements are intact. NECK: Supple. No JVD. No thyromegaly. No submental, submandibular, pre- /postauricular, occipital or supraclavicular lymphadenopathy. CHEST: Normal chest expansion. No Telemetry. LUNGS: Absence of any rales, rhonchi or any wheezing. CARDIOVASCULAR: Regular. S1 and S2 normal. No appreciable rubs, murmurs or gallops. ABDOMEN: Soft, nontender, and nondistended. There is no rebound, voluntary guarding, or rigidity. : Deferred. No Reyn[place]. EXTREMITIES: Non-edematous and not cyanotic. No clubbing. Good capillary refill. SKIN: No skin breakdown. Vital Signs (last 8hr) Date Time Temp Pulse Resp B/P (MAP) Pulse Ox O2 Delivery O2 Flow Rate FiO2 02/08/25 08:00 99 Room Air* 0 21 02/08/25 07:00 98.2 82 16 104/55 98 Room Air 02/08/25 06:36 96 18 N/A Room Air 21 02/08/25 03:34 98.2 86 18 111/66 96 Room Air LABS: Laboratory: Test 02/08/25 03:03 02/07/25 08:48 02/06/25 11:19 Range/Units White Blood Count 10.0 4.8-10.8 K/uL Red Blood Count 3.29 L 4.00-5.50 MIL/uL Hemoglobin 8.0 L 12.0-16.0 g/dL Hematocrit 24.4 L 36-48 % Mean Corpuscular Volume 74.2 L 79-99 fL Mean Corpuscular Hemoglobin 24.3 L 27.0-33.0 pg Mean Corpuscular Hemoglobin Concent 32.8 32.0-36.0 g/dL Red Cell Distribution Width 19.4 H 11.0-15.5 % Platelet Count 326 130-400 K/uL Mean Platelet Volume 10.1 7.5-10.5 fL Immature Granulocyte % (Auto) 0.2 0-1 % Neutrophils (%) (Auto) 53.6 40.0-77.0 % Lymphocytes (%) (Auto) 27.3 21.0-51.0 % Monocytes (%) (Auto) 10.4 3.0-13.0 % Eosinophils (%) (Auto) 7.5 0.0-8.0 % Basophils (%) (Auto) 1.0 0.0-5.0 % Neutrophils # (Auto) 5.4 1.8-7.7 K/uL Lymphocytes # (Auto) 2.7 1.0-4.8 K/uL Monocytes # (Auto) 1.0 0.1-1.0 K/uL Eosinophils # (Auto) 0.75 H 0.00-0.70 K/uL Basophils # (Auto) 0.10 0.00-0.20 K/uL Absolute Immature Granulocyte (auto 0.02 0-1 K/uL Nucleated Red Blood Cells 0.0 0.0-0.19 % Sodium Level 140 136-145 mmol/L Potassium Level 3.1 L 3.5-5.1 mmol/L Chloride Level 109 101-111 mmol/L Carbon Dioxide Level 21 21-32 mmol/L Blood Urea Nitrogen 8 7-18 mg/dL Creatinine 0.4 L 0.5-1.0 mg/dL Glomerular Filtration Rate Calc 133 >90 mL/min Random Glucose 88 70-105 mg/dL Total Calcium 7.7 L 8.5-10.1 mg/dL Total Bilirubin 1.2 H 0.2-1.0 mg/dL Aspartate Amino Transf (AST/SGOT) 236 H 10-37 U/L Alanine Aminotransferase (ALT/SGPT) 135 H 12-78 U/L Alkaline Phosphatase 514 H 50-136 U/L Total Protein 6.6 6.0-8.3 g/dL Albumin 2.1 L 3.5-5.0 g/dL Iron Level 49 L 50-170 mcg/dL Total Iron Binding Capacity 233 L 250-450 mcg/dL Percent Iron Saturation 21.0 L 22-44 % Ferritin 19 15-150 ng/mL Red Blood Cell Morphology See comments Prothrombin Time 11.7 H 9.6-11.6 SEC Prothromb Time International Ratio 1.12 0.85-1.15 Activated Partial Thromboplast Time 27.3 26.3-35.5 SEC Lactic Acid Level 1.5 0.8-2.5 mmol/L Direct Bilirubin 0.7 H 0.0-0.3 mg/dL Gamma Glutamyl Transpeptidase 510 H 5-85 U/L Total Creatine Kinase 114 21-232 U/L Troponin I High Sensitivity 7 4-50 ng/L Lipase 62 16-77 U/L Serum Test, Qualitative NEGATIVE NEGATIVE Current Medications Medications (Trade) Dose Ordered Sig/Arina Route PRN Reason Start Time Stop Time Status Last Admin Dose Admin Acetaminophen (TYLenol 325MG TAB) 650 mg Q6H PRN PO MILD PAIN (1-3) 02/06/25 13:30 03/08/25 13:29 Albuterol (DUOneb) 1 udvial Q6H PRN IH SHORTNESS OF BREATH 02/06/25 14:00 03/08/25 13:59 Ceftriaxone Sodium (ROCEphine 1G INJ) 1 gm DAILY IVPB 02/07/25 09:00 02/06/25 13:36 DC Ceftriaxone Sodium (Rocephin 2gm Inj) 2 gm ONCE STAT IVPB 02/06/25 11:05 02/06/25 11:09 DC 02/06/25 11:46 2 GM Dextrose/Sodium Chloride 1,000 ml @ 75 mls/hr [id number] IV 02/06/25 13:00 03/08/25 12:59 02/08/25 05:45 75 MLS/HR Diphenhydramine HCl (BENAdryl INJ) 25 mg Q8H PRN IV ITCHING/ hives 02/06/25 14:30 03/08/25 14:29 Levofloxacin/ Dextrose 100 ml @ 100 mls/hr DAILY IV 02/07/25 09:00 02/17/25 08:59 02/07/25 10:31 100 MLS/HR Midodrine (PROAMatine 5 MG TABLET) 5 mg TID PRN PO FOR BP LESS THAN 90/60 02/06/25 13:30 03/08/25 13:29 Multivitamins Therapeutic (Multivitamin Tablet) 1 tab DAILY PO 02/07/25 09:00 03/09/25 08:59 02/07/25 10:33 1 TAB Octreotide Acetate 1250 mcg/ Sodium Chloride 250 ml @ 0 mls/hr PROTOCOL IV 02/06/25 13:00 03/08/25 12:59 02/06/25 13:40 5 MLS/HR Ondansetron HCl (zoFRAN 4MG INJ) 4 mg ONCE STAT IVP 02/06/25 11:05 02/06/25 11:09 DC 02/06/25 11:46 4 MG Ondansetron HCl (zoFRAN 4MG INJ) 4 mg Q6H PRN IVP NAUSEA/VOMITING 02/06/25 13:30 03/08/25 13:29 Pantoprazole Sodium (PROTonix 40MG INJ) 80 mg ONCE STAT IVP 02/06/25 11:05 02/06/25 11:09 DC 02/06/25 11:46 80 MG Pantoprazole Sodium (PROTonix 40MG TAB) 40 mg DAILY PO 02/08/25 09:00 03/10/25 08:59 Pantoprazole Sodium 80 mg/ Sodium Chloride 100 ml @ 10 mls/hr Q10H IV 02/06/25 13:00 02/07/25 10:18 DC 02/06/25 23:25 10 MLS/HR Potassium Chloride 100 ml @ 50 mls/hr AD PRN IV POTASSIUM PROTOCOL 02/08/25 05:00 03/10/25 04:59 Potassium Chloride 100 ml @ 100 mls/hr AD PRN IV POTASSIUM PROTOCOL 02/08/25 05:00 03/10/25 04:59 02/08/25 05:46 100 MLS/HR Thiamine HCl (Vitamin B-1) 100 mg DAILY IVP 02/07/25 09:00 03/09/25 08:59 02/07/25 10:34 100 MG DIAGNOSTICS / RADIOLOGY: PATIENT: JANINE BUENO MR#: [id number] : 1990 SEX: F AGE: 34 LOCATION: [facility] ORDER 17 STATUS: ADM IN REPORT#: [id number] SERVICE 15 REASON: Upper GI bleed, assess for cirrhosis, perform with portal doppler ORDERING PHYSICIAN: YOLANDA AGOSTO MD PROCEDURE: ABDOMEN - US ABDOMINAL COMPLETE US ABDOMINAL COMPLETE REASON: Upper GI bleed, assess for cirrhosis, perform with portal doppler COMPARISON: None FINDINGS: Liver has lobulated contour with coarse echotexture with nodular changes suggesting of cirrhosis. The liver length is 14.1 cm.. There are no focal mass lesions. The liver is not enlarged. The portal vein has a hepatopetal. Flow There is a normal-appearing gallbladder. The gallbladder wall thickness is 0.3 cm. The common bile duct measures 0.5 cm. The common bile duct measures 0.5 cm. Kidneys appear normal in size and appearance. The right kidney measures 10.2 x 4.5 x 4.4 cm and the left kidney measures 11.7 x 4.4 x 4.6 cm. There is no evidence of mass, stone or hydronephrosis. Spleen and common duct appear normal. Aorta and inferior vena cava appear normal. The pancreas appears normal as well. The tail of the pancreas is obscured by overlying bowel gas. IMPRESSION: Liver has lobulated contour suggesting of cirrhosis Otherwise a normal abdominal sonogram.. DICTATED BY: PARUL GAVIRIA MD DATE: 02/06/25 153 ELECTRONICALLY SIGNED BY: PARUL GAVIRIA MD DATE: 02/06/25 1540 ASSESSMENT: Variceal bleeding, POA Upper GI blood loss anemia, POA Acute on iron deficiency chronic anemia, POA Rule out decompensated cirrhosis of the liver, POA Abnormal LFTs, POA Family history of liver disease with father requiring liver transplantation, POA History of ulcerative colitis currently not on medication management, POA History of variceal bleeding in 2022 requiring banding, POA Possible allergic to Rocephin with hives in the ER Hx of allegic reaction to Propofol, POA PLAN: *Plan is to discharge patient tomorrow if she remains hemodynamically stable. * Dr Jackson (Gastroenterology) has no plans to scope patient at this time, *Advance patient's diet as tolerated *Plan for H&H tomorrow morning. Variceal bleeding, POA: * Hemoglobin 8, up from 6.6 yesterday * H/O three episodes of esophageal variceal bleed with banding. * GI was consulted and EGD was done with banding by Dr. Jackson on 02/06/25. * One unit of Leukocyte reduced RBC was transfused after the procedure.. * Currently on levofloxacin (day 2) for SBP prophylaxis. * Will monitor Hemoglobin and Hematocrit daily. Rule out decompensated cirrhosis of the liver, POA: * MRCP done today 02/08/22. Pending results * LFT from 02/06/25 results show GGT-510, AST-252>165, ALT-169>121, ALP- 644>489. Total bilirubin-1.4 * Abdominal USG was ordered, results show Liver has lobulated contour suggesting of cirrhosis * Abdominal CT was taken, pending report. * GI was consulted and are on the case, will follow their recommendations. * Further workup for liver disease including Anti Mitochondrial Antibody, Smooth Muscle Antibody, ANCA serologies, VADIM, IGG4, alpha-1 antitrypsin level, iron panel, serum ceruloplasmin level, viral hepatitis panel was ordered, will follow up on results * Will monitor with daily CMP. Acute on iron deficiency chronic anemia, POA * Anemia panel was ordered, results show Iron-49, TIBC-233, %saturation-21. * Started patient on IV Venofer. * Will monitor with daily labs Supportive measures: Will monitor blood pressure closely, we will maintain map greater than 65, we will place orders for midodrine 5 mg t.i.d. p.r.n. case blood pressure is less than 90/60 Started patient on IV fluids with D5/NS at 75 mls/hr, Started patient on thiamine and multivitamin supplementation. ATTESTATION BY PHYSICIAN I have seen and examined the patient. I reviewed the documentation, medical dec ision making, and treatment plan as noted by the resident physician above. I agree with the findings and plan of care. AUGUSTO ALEXANDER MD OBI,KAMRYN Holt MD Feb 08, 2025 08:35
[2025-02-08 16:12] LABS: HEPATITIS B CORE AB TOTAL Non-Reactive (Nonreactive); HEPATITIS B SURFACE ANTIBODY Positive (Reactive)
[2025-02-08 16:13] LABS: HEPATITIS B CORE IGM ANTIBODY Non-Reactive (Negative)
[2025-02-08] MEDS: LACTULOSE 20 GM/30 ML UDCUP PO ONE ×2 (20:07→22:10)
[2025-02-08] MEDS: THIAMINE HCL 100 MG/ML 2ML VIAL IVP SCH (21:07)
[2025-02-09] VITALS (21 sets, daily range): BP systolic 95–116; BP diastolic 55–72; PULSE 65–84; RESP 16–20; TEMP 97.4–98.4; O2SAT 97–99
[2025-02-09 03:46] LABS: IMMATURE GRANULOCYTE ABSOLUTE 0.02 K/uL (0-1); NUCLEATED RED BLOOD CELLS 0.0 % (0.0-0.19); PLATELET COUNT (AUTO) 355 K/uL (130-400); RED BLOOD CELL COUNT(AUTO) 3.41 MIL/uL (4.00-5.50); RED CELL DISTRIBUTION WIDTH 20.1 % (11.0-15.5); WHITE BLOOD COUNT (AUTO) 9.3 K/uL (4.8-10.8)
[2025-02-09 04:18] LABS: ASPARTATE AMINOTRANSFERASE 206.0 U/L (10-37); CREATININE 0.6 mg/dL (0.5-1.0); GLOMERULAR FILTR. RATE CALC 121.0 mL/min (>90); GLUCOSE,RANDOM 141.0 mg/dL (70-105); SODIUM SERUM 141.0 mmol/L (136-145); TOTAL PROTEIN, SERUM 7.0 g/dL (6.0-8.3); UREA NITROGEN, BLOOD 6.0 mg/dL (7-18)
--- NOTE | 2025-02-09 06:00 | NUR ---
TRANSFERRED TO CHAIR AT THIS TIME. TOLERATED WELL. NO SS DISTRESS, NO C/O PAIN WILL CONT TO MONITOPR
--- NOTE | 2025-02-09 09:31 | HMCSR ---
APPROVED REPORT EXAM: Two-dimensional and M-mode echocardiogram with Doppler and color Doppler. INDICATION ICD: R06.02 Shortness of breath, anemia 2D Dimensions RVDd3.0 cmLVEF(%)52.6 (>50%)LVED Vol(simp.)72.4 mL IVSd0.4 (0.7-1.1cm)FS(%)27 %LVES Vol(simp.)29.2 mL LVDd4.2 (3.8-5.6cm)LA (2D)2.6 (1.6-4.0cm)LVEF(%, simp.)60 % PWd0.9 (0.7-1.1cm)Ao Root(2D)2.5 (2.0-3.7cm)LA ESV INDEX (BP)27.84 mL/m2 LVDs3.1 (2.5-4.0cm)LVOT diam2.0 (1.8-2.4cm) IVC diam1.7 cm Deformation Strain Apical 4-19.8 % Apical 2-20.5 % Apical 3-18.4 % Global Strain-19.6 % M-Mode Dimensions EPSS0.8 cm LA (MM)2.6 (1.6-4.0cm) Ao Root(MM)2.2 (2.0-3.7cm) Aortic Valve AoV Vmax1.4 m/Nallely Peak GR7.9 mmHgLVOT Vmax1.1 m/s AoV VTI0.3 mAo Mean GR4.3 mmHgLVOT VTI0.21 m NAVDEEP (VMAX)2.45 cm2AVA (VTI) 2.3 cm2 Mitral Valve MV E Vmax74.6 cm/sDECEL Azfz046 ms MV A Vmax66.8 cm/sP 1/2 T45 ms E/A ratio1.1MVA (PHT)4.9 cm2 TDI E/E' Medial6.7E/E' Lateral5.1 Medial E' Peak V11.10 cm/sLateral E' Peak V14.51 cm/s Left Ventricle The left ventricle is normal size. No regional wall motion abnormalities noted. There is normal left ventricular wall thickness. Left ventricle systolic function is normal. The Ejection Fraction is 55-6 0%. The left ventricular diastolic function is normal. Right Ventricle The right ventricle is normal size. The right ventricular systolic function is normal. Atria The left atrium size is normal. The right atrium size is normal. Aortic Valve The aortic valve is normal in structure. No aortic regurgitation is present. There is no aortic valvu lar stenosis. Mitral Valve The mitral valve is normal in structure. There is no mitral valve regurgitation noted. There is no mi tral valve stenosis. Tricuspid Valve The tricuspid valve is normal in structure. There is no tricuspid valve regurgitation noted. Pulmonic Valve The pulmonary valve is normal in structure. There is no pulmonic valvular regurgitation. Great Vessels The aortic root is normal in size. The IVC is normal in size and collapses >50% with inspiration. Pericardium There is no pericardial effusion. Conclusion Left ventricle systolic function is normal. The Ejection Fraction is 55-60%. The left ventricular diastolic function is normal. Normal chamber sizes. No valvular disease. Normal study
--- NOTE | 2025-02-09 09:49 | HMCIMG ---
EXAM: MR Cholangiopancreatography CLINICAL HISTORY: Patient with history of ulcerative colitis and cirrhosis presents for evaluation of suspected primary sclerosing cholangitis with elevated alkaline phosphatase (644 U/L). TECHNIQUE: Multiplanar MR images of the abdomen were obtained without intravenous contrast using customized pulse sequences. COMPARISON: 02/06/2025. FINDINGS: LIVER: Liver measures 16 cm with nodular cirrhotic contour. Mild central intrahepatic biliary radical dilatation. GALLBLADDER AND BILE DUCTS: Gallbladder is distended with diffusely edematous wall thickening. Distal common bile duct tapers smoothly with upstream mild dilatation measuring up to 0.9 cm. Some intrahepatic ducts show beaded appearance representing areas of stricturing and dilatation. PANCREAS: No mass or peripancreatic fluid. SPLEEN: Normal in size and configuration. ADRENALS: Normal bilaterally. KIDNEYS: Normal in size and configuration. No stone, hydronephrosis, mass, or significant cyst. RETROPERITONEUM: No mass or lymphadenopathy. AORTA: Visualized abdominal aorta normal in size and configuration. No stenosis or aneurysm. BOWEL/MESENTERY: Normal. No bowel dilatation or wall thickening. No mesenteric stranding or fluid. ABDOMINAL WALL: Normal. BONES: Normal. CHEST: Small right and trace left pleural effusions with adjacent atelectasis. PERITONEUM: Trace perihepatic free fluid. IMPRESSION: Nodular cirrhotic liver with mild central intrahepatic biliary dilatation. Distal common bile duct tapering with upstream mild dilatation and some beaded intrahepatic ducts, suspicious for primary sclerosing cholangitis. Gallbladder distension with diffusely edematous wall thickening, likely secondary to biliary obstruction. Small right and trace left pleural effusions with adjacent atelectasis. Trace perihepatic free fluid. Recommend contrast-enhanced MRI/MRCP or ERCP for detailed evaluation. /Bosler
--- NOTE | 2025-02-09 10:58 | PN ---
[facility] PROGRESS NOTE Date of Service: Feb 09, 2025 Time of Service: 10:52 HISTORY OF PRESENT ILLNESS: Date of service: 02/06/2025, patient was seen in ER room 13 34-year-old female with underlying history of ulcerative colitis currently not on any medication therapy, prior history of variceal bleed in 2022, anemia presented to the ER for further evaluation of tarry stool. Symptoms started close to 7:00 a.m. today and patient reports having three episodes of tarry stool. Denies any coffee-ground emesis, hematemesis or hematochezia. Patient is followed by Dr. Jackson with Gastroenterology as outpatient. Has a previous history of upper GI bleed in 2022 requiring variceal banding. She denies previously being diagnosed with liver cirrhosis. Denies any alcohol history. She reports having family history of liver disease with father needing liver transplantation. She thinks that father had history of fatty liver disease. Patient reports having had history of ulcerative colitis since 2009. Reports that UC symptoms have been in remission over the last 4 years. She is currently doing dietary and lifestyle modification for management of ulcerative colitis. Denies having had any UC flare recently. She denies taking any medications for ulcerative colitis. She has not seen Dr. Jackson for about two year in clinic. Reports having had some mild dizziness today with tarry stool. Denies any syncope or falls. On presentation to the hospital, patient was noted to be afebrile with T-max of 98.2 F, heart rate of 104, blood pressure 116/66. Labs on presentation showed WBC count of 8100, hemoglobin of 8.8, MCV of 73.1, platelet count of [id number]. CMP remarkable for sodium 138, potassium 4.3, BUN of 23, creatinine of 0.4, bilirubin of 1.1, AST of 252, ALT of 169, alkaline phosphatase of 644, lipase of 62. SUBJECTIVE: 02/07/2025: Patient was seen and evaluated in room 224. Patient underwent EGD and variceal banding by Dr. jackson last night. Patient reports feeling better today and was eager to find out when she will get discharged. Later in the afternoon she mentioned she passed on tarry stool. Patient was transfused one unit of Leukocyte reduced RBC yesterday after the EGD procedure. Hemoglobin trends before and after the transfusion was 6.6>8.2.Patient denies any Dizziness, hematemesis. She is scheduled for MRCP, will follow up with results. 02/08/25: Lying in bed at the time of evaluation. Alert and oriented and in no obvious distress. Patient states that she had 2 episodes of black tarry stool today. Vital signs are relatively unremarkable. Labs showed Hemoglobin 8 up from 6.6 yesterday, Hct 24.4, Potassium 3.1, will replace as per protocol. AST 236, ALT 135, Alkaline phosphatase 514. Abdominal ultrasound showed a liver which has a lobulated contour suggestive of cirrhosis. Patient had an MRCP done today. As per Dr Jackson, patient will be kept for 1 more day, no plans to scope at this time, and diet can be advanced as tolerated. Plan for discharge tomorrow. 02/09/25: Patient was seen and evaluated in room 224. Patient is scheduled for EGD again today. Patient complained of passing one episode of tarry stool today in the morning. She is hemodynamically stable, ECHO was ordered, result show EF of 55-60%. MRCP was done, results show Nodular cirrhotic liver with mild central intrahepatic biliary dilatation. Distal common bile duct tapering with upstream mild dilatation and some beaded intrahepatic ducts, suspicious for primary sclerosing cholangitis. Hemoglobin today 8.3. AST-206, ALT 138, ALP-555. Hepatitis B antibody was positive. Patient denies any chest pain, hematochezia, or abdominal pain. REVIEW OF SYSTEMS CONSTITUTIONAL: Denies fevers, chills, or night sweats. No unintentional weight loss reported. NEUROLOGICAL: Denies headache, amaurosis fugax, motor weakness, sensory deficit, vertigo/spinning sensation, gait abnormalities, or tremors. ENT: No hearing loss, otalgia, otorrhea, rhinitis, rhinorrhea, hoarseness, or sore throat. CARDIOVASCULAR: Denies any exertional angina, dyspnea on exertion, orthopnea, paroxysmal nocturnal dyspnea, palpitations, life-threatening arrhythmias, claudication. PULMONARY: Denies any shortness of breath, cough, phlegm/sputum, hemoptysis, pleuritic chest pain. SLEEP: Denies morning headaches, daytime somnolence or napping. Denies difficulty falling asleep, staying asleep, waking from sleep. Denies knowledge of snoring. GASTROINTESTINAL: Reports having had tarry stool two episodes today GENITOURINARY: Denies frequency, urgency, nocturia, hematuria or incontinence (Storage/Irritative symptoms.) Low urinary stream, straining to void, urinary intermittency or hesitancy, splitting of the voiding stream, terminal dribbling. ENDOCRINOLOGIC: Denies polyuria, polydipsia, polyphagia or heat/cold intolerances. HEMATOLOGIC: Denies thrombophilia/previous clots, or coagulopathy/bleeding disorders. ONCOLOGIC: Denies personal history of malignancy. DERMATOLOGIC: Denies rashes or pruritus. PSYCHIATRIC: Denies any suicidal or homicidal ideation. Denies hallucinations. PHYSICAL EXAM GENERAL APPEARANCE: The patient is awake, alert, and oriented, in no acute cardiopulmonary distress, appears debilitated NEUROLOGICAL: Cranial nerves II-XII grossly intact. Motor is 5/5 in bilateral upper and lower extremities proximal to distal. No sensory deficits. HEENT: Face is symmetric. Pupils are equal and reactive. Extraocular movements are intact. NECK: Supple. No JVD. No thyromegaly. No submental, submandibular, pre- /postauricular, occipital or supraclavicular lymphadenopathy. CHEST: Normal chest expansion. No Telemetry. LUNGS: Absence of any rales, rhonchi or any wheezing. CARDIOVASCULAR: Regular. S1 and S2 normal. No appreciable rubs, murmurs or gallops. ABDOMEN: Soft, nontender, and nondistended. There is no rebound, voluntary guarding, or rigidity. : Deferred. No [place]. EXTREMITIES: Non-edematous and not cyanotic. No clubbing. Good capillary refill. SKIN: No skin breakdown. Vital Signs (last 8hr) Date Time Temp Pulse Resp B/P (MAP) Pulse Ox O2 Delivery O2 Flow Rate FiO2 02/09/25 07:56 98.2 76 16 100/65 99 Room Air 02/09/25 06:49 82 20 N/A Room Air 21 02/09/25 04:05 97.9 75 18 105/65 98 Room Air LABS: Laboratory: Test 02/09/25 03:07 02/08/25 03:03 Range/Units White Blood Count 9.3 4.8-10.8 K/uL Red Blood Count 3.41 L 4.00-5.50 MIL/uL Hemoglobin 8.3 L 12.0-16.0 g/dL Hematocrit 26.2 L 36-48 % Mean Corpuscular Volume 76.8 L 79-99 fL Mean Corpuscular Hemoglobin 24.3 L 27.0-33.0 pg Mean Corpuscular Hemoglobin Concent 31.7 L 32.0-36.0 g/dL Red Cell Distribution Width 20.1 H 11.0-15.5 % Platelet Count 355 130-400 K/uL Mean Platelet Volume 10.1 7.5-10.5 fL Immature Granulocyte % (Auto) 0.2 0-1 % Neutrophils (%) (Auto) 49.4 40.0-77.0 % Lymphocytes (%) (Auto) 28.8 21.0-51.0 % Monocytes (%) (Auto) 11.4 3.0-13.0 % Eosinophils (%) (Auto) 9.0 H 0.0-8.0 % Basophils (%) (Auto) 1.2 0.0-5.0 % Neutrophils # (Auto) 4.6 1.8-7.7 K/uL Lymphocytes # (Auto) 2.7 1.0-4.8 K/uL Monocytes # (Auto) 1.1 H 0.1-1.0 K/uL Eosinophils # (Auto) 0.84 H 0.00-0.70 K/uL Basophils # (Auto) 0.11 0.00-0.20 K/uL Absolute Immature Granulocyte (auto 0.02 0-1 K/uL Nucleated Red Blood Cells 0.0 0.0-0.19 % Sodium Level 141 136-145 mmol/L Potassium Level 4.0 3.5-5.1 mmol/L Chloride Level 109 101-111 mmol/L Carbon Dioxide Level 22 21-32 mmol/L Blood Urea Nitrogen 6 L 7-18 mg/dL Creatinine 0.6 0.5-1.0 mg/dL Glomerular Filtration Rate Calc 121 >90 mL/min Random Glucose 141 H 70-105 mg/dL Total Calcium 7.9 L 8.5-10.1 mg/dL Total Bilirubin 0.9 0.2-1.0 mg/dL Aspartate Amino Transf (AST/SGOT) 206 H 10-37 U/L Alanine Aminotransferase (ALT/SGPT) 138 H 12-78 U/L Alkaline Phosphatase 555 H 50-136 U/L Total Protein 7.0 6.0-8.3 g/dL Albumin 2.2 L 3.5-5.0 g/dL Hepatitis A IgM Antibody Non-Reactive Nonreactive Hepatitis B Surface Antigen. Non-Reactive Nonreactive Hepatitis B Surface Antibody. Positive Reactive Hepatitis B Core Total Antibody. Non-Reactive Nonreactive Hepatitis B Core IgM Antibody Non-Reactive Negative Hepatitis C Antibody Non-Reactive Nonreactive Current Medications Medications (Trade) Dose Ordered Sig/Arina Route PRN Reason Start Time Stop Time Status Last Admin Dose Admin Acetaminophen (TYLenol 325MG TAB) 650 mg Q6H PRN PO MILD PAIN (1-3) 02/06/25 13:30 03/08/25 13:29 Albuterol (DUOneb) 1 udvial Q6H PRN IH SHORTNESS OF BREATH 02/06/25 14:00 03/08/25 13:59 Ceftriaxone Sodium (ROCEphine 1G INJ) 1 gm DAILY IVPB 02/07/25 09:00 02/06/25 13:36 DC Ceftriaxone Sodium (Rocephin 2gm Inj) 2 gm ONCE STAT IVPB 02/06/25 11:05 02/06/25 11:09 DC 02/06/25 11:46 2 GM Dextrose/Sodium Chloride 1,000 ml @ 75 mls/hr [id number] IV 02/06/25 13:00 03/08/25 12:59 02/09/25 00:10 75 MLS/HR Diphenhydramine HCl (BENAdryl INJ) 25 mg Q8H PRN IV ITCHING/ hives 02/06/25 14:30 03/08/25 14:29 Levofloxacin/ Dextrose 100 ml @ 100 mls/hr DAILY IV 02/07/25 09:00 02/17/25 08:59 02/08/25 08:49 100 MLS/HR Midodrine (PROAMatine 5 MG TABLET) 5 mg TID PRN PO FOR BP LESS THAN 90/60 02/06/25 13:30 03/08/25 13:29 Multivitamins Therapeutic (Multivitamin Tablet) 1 tab DAILY PO 02/07/25 09:00 03/09/25 08:59 02/07/25 10:33 1 TAB Octreotide Acetate 1250 mcg/ Sodium Chloride 250 ml @ 0 mls/hr PROTOCOL IV 02/06/25 13:00 02/08/25 18:56 DC 02/06/25 13:40 5 MLS/HR Octreotide Acetate 1250 mcg/ Sodium Chloride 250 ml @ 0 mls/hr PROTOCOL IV 02/08/25 20:00 03/10/25 19:59 02/08/25 20:07 5 MLS/HR Ondansetron HCl (zoFRAN 4MG INJ) 4 mg ONCE STAT IVP 02/06/25 11:05 02/06/25 11:09 DC 02/06/25 11:46 4 MG Ondansetron HCl (zoFRAN 4MG INJ) 4 mg Q6H PRN IVP NAUSEA/VOMITING 02/06/25 13:30 03/08/25 13:29 Pantoprazole Sodium (PROTonix 40MG INJ) 40 mg BID IVP 02/08/25 21:00 03/10/25 20:59 02/08/25 20:07 40 MG Pantoprazole Sodium (PROTonix 40MG INJ) 80 mg ONCE STAT IVP 02/06/25 11:05 02/06/25 11:09 DC 02/06/25 11:46 80 MG Pantoprazole Sodium (PROTonix 40MG TAB) 40 mg DAILY PO 02/08/25 09:00 02/08/25 18:56 DC Pantoprazole Sodium 80 mg/ Sodium Chloride 100 ml @ 10 mls/hr Q10H IV 02/06/25 13:00 02/07/25 10:18 DC 02/06/25 23:25 10 MLS/HR Potassium Chloride 100 ml @ 50 mls/hr AD PRN IV POTASSIUM PROTOCOL 02/08/25 05:00 03/10/25 04:59 Potassium Chloride 100 ml @ 100 mls/hr AD PRN IV POTASSIUM PROTOCOL 02/08/25 05:00 03/10/25 04:59 02/08/25 08:48 100 MLS/HR Thiamine HCl (Vitamin B-1) 100 mg DAILY IVP 02/07/25 09:00 02/08/25 08:52 DC 02/07/25 10:34 100 MG Thiamine HCl (Vitamin B-1) 100 mg DAILY IVP 02/08/25 21:00 03/10/25 20:59 02/08/25 21:07 100 MG [place] [id number] [id number] IMAGING REPORT Signed PATIENT: JANINE BUENO MR#: [id number] : 1990 SEX: F AGE: 34 LOCATION: 2DH ORDER 2300 STATUS: ADM IN REPORT#: [id number] SERVICE 0800 REASON: concern for PSC, Cirrhosis w/ Hx of UC, Alk Phos of 644 ORDERING PHYSICIAN: YOLANDA AGOSTO MD PROCEDURE: MRCP WO - MRCP(ABDWO)CHOLANGIOPANCREATOG EXAM: MR Cholangiopancreatography CLINICAL HISTORY: Patient with history of ulcerative colitis and cirrhosis presents for evaluation of suspected primary sclerosing cholangitis with elevated alkaline phosphatase (644 U/L). TECHNIQUE: Multiplanar MR images of the abdomen were obtained without intravenous contrast using customized pulse sequences. COMPARISON: 02/06/2025. FINDINGS: LIVER: Liver measures 16 cm with nodular cirrhotic contour. Mild central intrahepatic biliary radical dilatation. GALLBLADDER AND BILE DUCTS: Gallbladder is distended with diffusely edematous wall thickening. Distal common bile duct tapers smoothly with upstream mild dilatation measuring up to 0.9 cm. Some intrahepatic ducts show beaded appearance representing areas of stricturing and dilatation. PANCREAS: No mass or peripancreatic fluid. SPLEEN: Normal in size and configuration. ADRENALS: Normal bilaterally. KIDNEYS: Normal in size and configuration. No stone, hydronephrosis, mass, or significant cyst. RETROPERITONEUM: No mass or lymphadenopathy. AORTA: Visualized abdominal aorta normal in size and configuration. No stenosis or aneurysm. BOWEL/MESENTERY: Normal. No bowel dilatation or wall thickening. No mesenteric stranding or fluid. ABDOMINAL WALL: Normal. BONES: Normal. CHEST: Small right and trace left pleural effusions with adjacent atelectasis. PERITONEUM: Trace perihepatic free fluid. IMPRESSION: Nodular cirrhotic liver with mild central intrahepatic biliary dilatation. Distal common bile duct tapering with upstream mild dilatation and some beaded intrahepatic ducts, suspicious for primary sclerosing cholangitis. Gallbladder distension with diffusely edematous wall thickening, likely secondary to biliary obstruction. Small right and trace left pleural effusions with adjacent atelectasis. Trace perihepatic free fluid. Recommend contrast-enhanced MRI/MRCP or ERCP for detailed evaluation. /[place] DICTATED BY: SILVERIO PATTON MD DATE: 02/09/251047 ELECTRONICALLY SIGNED BY: SILVERIO PATTON MD DATE: 02/09/251047 DIAGNOSTICS / RADIOLOGY: [address] [place] [id number] IMAGING REPORT Signed PATIENT: JANINE BUENO MR#: [id number] : 1990 SEX: F AGE: 34 LOCATION: [facility] ORDER 24 STATUS: ADM IN REPORT#: [id number] SERVICE 22 REASON: anemia, sob ORDERING PHYSICIAN: FRANKIE BALDWIN MD PROCEDURE: ECHO CMP - ECHO 2-D COMPLETE APPROVED REPORT EXAM: Two-dimensional and M-mode echocardiogram with Doppler and color Doppler. INDICATION ICD: R06.02 Shortness of breath, anemia 2D Dimensions RVDd 3.0 cm LVEF(%) 52.6 (>50%) LVED Vol(simp.) 72.4 mL IVSd 0.4 (0.7-1.1cm) FS(%) 27 % LVES Vol(simp.) 29.2 mL LVDd 4.2 (3.8-5.6cm) LA (2D) 2.6 (1.6-4.0cm) LVEF(%, simp.) 60 % PWd 0.9 (0.7-1.1cm) Ao Root(2D) 2.5 (2.0-3.7cm) LA ESV INDEX (BP) 27.84 mL/m2 LVDs 3.1 (2.5-4.0cm) LVOT diam 2.0 (1.8-2.4cm) IVC diam 1.7 cm Deformation Strain Apical 4 -19.8 % Apical 2 -20.5 % Apical 3 -18.4 % Global Strain -19.6 % M-Mode Dimensions EPSS 0.8 cm LA (MM) 2.6 (1.6-4.0cm) Ao Root(MM) 2.2 (2.0-3.7cm) Aortic Valve AoV Vmax 1.4 m/s Ao Peak GR 7.9 mmHg LVOT Vmax 1.1 m/s AoV VTI 0.3 m Ao Mean GR 4.3 mmHg LVOT VTI 0.21 m NAVDEEP (VMAX) 2.45 cm2 NAVDEEP (VTI) 2.3 cm2 Mitral Valve MV E Vmax 74.6 cm/s DECEL Time 229 ms MV A Vmax 66.8 cm/s P 1/2 T 45 ms E/A ratio 1.1 MVA (PHT) 4.9 cm2 TDI E/E' Medial 6.7 E/E' Lateral 5.1 Medial E' Peak V 11.10 cm/s Lateral E' Peak V 14.51 cm/s Left Ventricle The left ventricle is normal size. No regional wall motion abnormalities noted. There is normal left ventricular wall thickness. Left ventricle systolic fun ction is normal. The Ejection Fraction is 55-60%. The left ventricular diastolic function is normal. Right Ventricle The right ventricle is normal size. The right ventricular systolic function is normal. Atria The left atrium size is normal. The right atrium size is normal. Aortic Valve The aortic valve is normal in structure. No aortic regurgitation is present. There is no aortic valvular stenosis. Mitral Valve The mitral valve is normal in structure. There is no mitral valve regurgitation noted. There is no mitral valve stenosis. Tricuspid Valve The tricuspid valve is normal in structure. There is no tricuspid valve regurgitation noted. Pulmonic Valve The pulmonary valve is normal in structure. There is no pulmonic valvular regurgitation. Great Vessels The aortic root is normal in size. The IVC is normal in size and collapses >50% with inspiration. Pericardium There is no pericardial effusion. Conclusion Left ventricle systolic function is normal. The Ejection Fraction is 55-60%. The left ventricular diastolic function is normal. Normal chamber sizes. No valvular disease. Normal study DICTATED BY: WENDY FERNANDES MD DATE: 02/08/25 1110 ELECTRONICALLY SIGNED BY: WENDY FERNANDES MD DATE: 02/09/25 0671 ASSESSMENT: Variceal bleeding status post banding, POA Upper GI blood loss anemia, POA Acute on iron deficiency chronic anemia, POA Rule out decompensated cirrhosis of the liver, POA Abnormal LFTs, POA Family history of liver disease with father requiring liver transplantation, POA History of ulcerative colitis currently not on medication management, POA History of variceal bleeding in 2022 requiring banding, POA Possible allergic to Rocephin with hives in the ER Hx of allegic reaction to Propofol, POA PLAN: Variceal bleeding, POA: * Hemoglobin today 8.3. * H/O three episodes of esophageal variceal bleed with banding. * GI was consulted and EGD was done with banding by Dr. Jackson on 02/06/25. * One unit of Leukocyte reduced RBC was transfused after the procedure.. * Currently on levofloxacin (day 3) for SBP prophylaxis. * EGD is scheduled for today by Dr. Jackson, will follow his recommendations. * Will monitor Hemoglobin and Hematocrit daily. Primary Sclerosing Cholangitis causing cirrhosis as per findings on MRCP: * H/O Ulcerative Colitis, with H/O three episodes of variceal bleed with banding. * MRCP done on 02/08/22. Results show Nodular cirrhotic liver with mild central intrahepatic biliary dilatation. Distal common bile duct tapering with upstream mild dilatation and some beaded intrahepatic ducts, suspicious for primary sclerosing cholangitis. * LFT from 02/06/25 results show GGT-510, AST-252>165>236>206, ALT- 169>121>135>138, ALP- 644>489>514>555. Total bilirubin-1.4>1.2>0.9 * Abdominal USG was ordered, results show Liver has lobulated contour suggesting of cirrhosis * Abdominal CT was taken, pending report. * GI was consulted and are on the case, will follow their recommendations. * Further workup for liver disease including Anti Mitochondrial Antibody, Smooth Muscle Antibody, ANCA serologies, VADIM, IGG4, alpha-1 antitrypsin level, iron panel, serum ceruloplasmin level, viral hepatitis panel was ordered, will follow up on results * Hepatitis B Ab was positive * Will monitor with daily CMP. Acute on iron deficiency chronic anemia, POA * Anemia panel was ordered, results show Iron-49, TIBC-233, %saturation-21. * Hemoglobin today 8.3. * patient was given IV Venofer on 02/07/25. * Will monitor with daily labs Supportive measures: Will monitor blood pressure closely, we will maintain map greater than 65, we will place orders for midodrine 5 mg t.i.d. p.r.n. case blood pressure is less than 90/60 Started patient on IV fluids with D5/NS at 75 mls/hr, Started patient on thiamine and multivitamin supplementation. ATTESTATION BY PHYSICIAN I have seen and examined the patient. I reviewed the documentation, medical decision making, and treatment plan as noted by the resident physician above. I agree with the findings and plan of care. Yahir Tarango MD, SHAJI MD Feb 09, 2025 10:58
--- NOTE | 2025-02-09 11:26 | HMCIMG ---
EXAM: CT Abdomen and Pelvis Without IV contrast CLINICAL HISTORY: upper GI bleed, assess for cirrhosis with portal HTN, elevated ALK [id number]* Need reading on Inpatient, pending discharge based on findings. TECHNIQUE: Axial computed tomography images of the abdomen and pelvis without intravenous contrast. CONTRAST: No IV contrast. COMPARISON: Compared with previous USG dated 02/06. FINDINGS: LUNG BASES: The lung bases appear clear. No pleural effusions are seen. LIVER: Liver measures 16 cm with nodular cirrhotic contour. GALLBLADDER AND BILE DUCTS: The gallbladder is grossly distended with trace pericholecystic free fluid. No radioopaque gallstones are seen. No biliary ductal dilatation is evident. PANCREAS: Unremarkable. SPLEEN: Unremarkable. ADRENAL GLANDS: Unremarkable. KIDNEYS, URETERS, AND BLADDER: The kidneys appear within normal limits. There is no hydronephrosis or hydroureter. No urinary calculi are seen. Urinary bladder is partially distended, limiting the evaluation. STOMACH AND BOWEL: Unremarkable appearance of the stomach and bowel. No evidence of bowel obstruction. No evidence suggesting enteritis or colitis. APPENDIX: Normal appendix. PERITONEUM: Mild meseteric fat stranding. No free air. LYMPH NODES: No lymphadenopathy is evident. REPRODUCTIVE: Unremarkable as visualized. VASCULATURE: No evidence of abdominal aortic aneurysm. BONES: No aggressive appearing osseous lesion. No acute osseous pathology evident. IMPRESSION: 1. Cirrhotic liver with nodular contour, measuring 16 cm. 2. Grossly distended gallbladder with trace pericholecystic free fluid. 3. No bowel obstruction or inflammation. Normal appendix. 4. No urinary calculi. No hydro process /[place]
[2025-02-09] MEDS ORDERED: LIDOCAINE PF 100MG/5ML (2%) SYRINGE 5ML ONE (15:16)
--- NOTE | 2025-02-09 16:55 | DS ---
Discharge Summary Hospital Course Summary: The patient is a 34-year-old female with a history of ulcerative colitis (in remission, not on medication), prior variceal bleeding requiring banding in 2022, chronic iron deficiency anemia, and a family history of liver disease, who presented with multiple episodes of melena and mild dizziness but no hematemesis or hematochezia. On admission, she was tachycardic and anemic (hemoglobin 8.8 g/dL, MCV 73.1), with thrombocytosis and elevated liver enzymes (AST 252, ALT 169, ALP 644), and imaging revealed a nodular, lobulated liver contour suggestive of cirrhosis. She underwent EGD with variceal banding for suspected upper GI bleeding, received one unit of leukocyte-reduced RBCs post-procedure, and was started on levofloxacin for spontaneous bacterial peritonitis prophylaxis due to a reported allergy to ceftriaxone. Hemoglobin improved from 6.6 to 8.2 after transfusion, and she continued to have intermittent melena but remained hemodynamically stable. Hypokalemia was corrected per protocol, and further workup for liver disease was initiated, including autoimmune and viral serologies, with hepatitis B antibody returning positive. MRCP demonstrated a nodular cirrhotic liver with mild central intrahepatic biliary dilatation, distal common bile duct tapering, and beaded intrahepatic ducts, suspicious for primary sclerosing cholangitis. Abdominal ultrasound confirmed cirrhosis, and abdominal CT was pending at the time of documentation. The patient was monitored with daily labs, including hemoglobin, hematocrit, and comprehensive metabolic panel, and received intravenous iron (Venofer) for iron deficiency anemia. Further workup for liver disease including Anti Mitochondrial Antibody, Smooth Muscle Antibody, ANCA serologies, VADIM, IGG4, alpha-1 antitrypsin level, iron panel, serum ceruloplasmin level, viral hepatitis panel was ordered. Hepatitis B antibody results came back positive. Anemia panel showed iron deficiency (iron 49, TIBC 233, % saturation 21). The assessment included variceal bleeding status post banding, acute on iron deficiency chronic anemia, possible decompensated cirrhosis, abnormal LFTs, family history of liver disease, history of ulcerative colitis, prior variceal bleeding, and medication allergies. The plan was to continue daily monitoring of hemoglobin and hematocrit, maintain a restrictive transfusion strategy (target hemoglobin ~7 g/dL unless otherwise indicated), continue vasoactive therapy and antibiotics. Today patient is being discharged, Her vitals were hemodynamically stable with instructions to Follow up with PCP in 3-4 days, Follow up with Gastroenterology, Dr. Burrows in 2 weeks and to follow clear liquid Diet for 2-3 days then transition to GI soft diet. Avoid spicy, oily foods. Pantop 40mg once daily. Levaquin 500mg x5 days Histopath Tech(s): Gastroenterology consult was done by Dr. Burrows MPRESSION: * Acute gastrointestinal bleed with melena and acute blood loss anemia, most likely from esophageal variceal bleed versus portal hypertensive gastropathy bleed versus angiodysplastic lesion or Dieulafoy's lesion of the upper gastrointestinal tract. * Elevated liver chemistry is likely secondary to hepatic cirrhosis and possible underlying primary sclerosing cholangitis. PLAN: * Give IV Protonix bolus and IV Sandostatin bolus and drip, both IVs. * Keep n.p.o. * Recommend EGD for further evaluation and management including possible banding of esophageal varices. * Continue to monitor CBC and transfuse PRBCs as needed to a hemoglobin of 7. * Obtain MRCP. * Check alpha-1 antitrypsin level, antinuclear antibody, anti-mitochondrial antibody, iron binding capacity, iron saturation, iron level and ferritin, also ceruloplasmin level and also P-ANCA, viral hepatitis B surface antibody, hepatitis B surface antigen, hepatitis B core antibody IgM, and hepatitis B core antibody total. Check HCV antibody and also HCV RNA via PCR with viral load and genotype/quantitative test, hepatitis A antibody total, hepatitis A antibody IgM, lipid panel, serum amylase and lipase. * Follow up with CMP in a.m. also. * Daily weights. * Recommend a colonoscopy also. * Further management to be decided on based on results from the above labs. Procedure(s): 1. EGD was done by Dr. Burrows on 02/06/25 with variceal banding. 2. Repeat EGD was done by Dr. Burrows on 02/09/25 with results shown as esophageal ulcers with stigmata of recent bleeding, acute gastritis. [address] [place] [id number] IMAGING REPORT Signed PATIENT: JANINE BUENO MR#: [id number] : 1990 SEX: F AGE: 34 LOCATION: 2DH ORDER 1425 STATUS: ADM IN REPORT#: [id number] SERVICE 1423 REASON: anemia, sob ORDERING PHYSICIAN: FRANKIE BALDWIN MD PROCEDURE: ECHO CMP - ECHO 2-D COMPLETE APPROVED REPORT EXAM: Two-dimensional and M-mode echocardiogram with Doppler and color Doppler. INDICATION ICD: R06.02 Shortness of breath, anemia 2D Dimensions RVDd 3.0 cm LVEF(%) 52.6 (>50%) LVED Vol(simp.) 72.4 mL IVSd 0.4 (0.7-1.1cm) FS(%) 27 % LVES Vol(simp.) 29.2 mL LVDd 4.2 (3.8-5.6cm) LA (2D) 2.6 (1.6-4.0cm) LVEF(%, simp.) 60 % PWd 0.9 (0.7-1.1cm) Ao Root(2D) 2.5 (2.0-3.7cm) LA ESV INDEX (BP) 27.84 mL/m2 LVDs 3.1 (2.5-4.0cm) LVOT diam 2.0 (1.8-2.4cm) IVC diam 1.7 cm Deformation Strain Apical 4 -19.8 % Apical 2 -20.5 % Apical 3 -18.4 % Global Strain -19.6 % M-Mode Dimensions EPSS 0.8 cm LA (MM) 2.6 (1.6-4.0cm) Ao Root(MM) 2.2 (2.0-3.7cm) Aortic Valve AoV Vmax 1.4 m/s Ao Peak GR 7.9 mmHg LVOT Vmax 1.1 m/s AoV VTI 0.3 m Ao Mean GR 4.3 mmHg LVOT VTI 0.21 m NAVDEEP (VMAX) 2.45 cm2 NAVDEEP (VTI) 2.3 cm2 Mitral Valve MV E Vmax 74.6 cm/s DECEL Time 229 ms MV A Vmax 66.8 cm/s P 1/2 T 45 ms E/A ratio 1.1 MVA (PHT) 4.9 cm2 TDI E/E' Medial 6.7 E/E' Lateral 5.1 Medial E' Peak V 11.10 cm/s Lateral E' Peak V 14.51 cm/s Left Ventricle The left ventricle is normal size. No regional wall motion abnormalities noted. There is normal left ventricular wall thickness. Left ventricle systolic function is normal. The Ejection Fraction is 55-60%. The left ventricular diastolic function is normal. Right Ventricle The right ventricle is normal size. The right ventricular systolic function is normal. Atria The left atrium size is normal. The right atrium size is normal. Aortic Valve The aortic valve is normal in structure. No aortic regurgitation is present. There is no aortic valvular stenosis. Mitral Valve The mitral valve is normal in structure. There is no mitral valve regurgitation noted. There is no mitral valve stenosis. Tricuspid Valve The tricuspid valve is normal in structure. There is no tricuspid valve regurgitation noted. Pulmonic Valve The pulmonary valve is normal in structure. There is no pulmonic valvular regurgitation. Great Vessels The aortic root is normal in size. The IVC is normal in size and collapses >50% with inspiration. Pericardium There is no pericardial effusion. Conclusion Left ventricle systolic function is normal. The Ejection Fraction is 55-60%. The left ventricular diastolic function is normal. Normal chamber sizes. No valvular disease. Normal study DICTATED BY: WENDY FERNANDES MD DATE: 02/08/25 1110 ELECTRONICALLY SIGNED BY: WENDY FERNANDES MD DATE: 02/09/[address] [address] IMAGING REPORT Signed PATIENT: JANINE BUENO MR#: [id number] : 1990 SEX: F AGE: 34 LOCATION: 2DH ORDER 2300 STATUS: ADM IN REPORT#: [id number] SERVICE 0800 REASON: concern for PSC, Cirrhosis w/ Hx of UC, Alk Phos of 644 ORDERING PHYSICIAN: YOLANDA AGOSTO MD PROCEDURE: MRCP WO - MRCP(ABDWO)CHOLANGIOPANCREATOG EXAM: MR Cholangiopancreatography CLINICAL HISTORY: Patient with history of ulcerative colitis and cirrhosis presents for evaluation of suspected primary sclerosing cholangitis with elevated alkaline phosphatase (644 U/L). TECHNIQUE: Multiplanar MR images of the abdomen were obtained without intravenous contrast using customized pulse sequences. COMPARISON: 02/06/2025. FINDINGS: LIVER: Liver measures 16 cm with nodular cirrhotic contour. Mild central intrahepatic biliary radical dilatation. GALLBLADDER AND BILE DUCTS: Gallbladder is distended with diffusely edematous wall thickening. Distal common bile duct tapers smoothly with upstream mild dilatation measuring up to 0.9 cm. Some intrahepatic ducts show beaded appearance representing areas of stricturing and dilatation. PANCREAS: No mass or peripancreatic fluid. SPLEEN: Normal in size and configuration. ADRENALS: Normal bilaterally. KIDNEYS: Normal in size and configuration. No stone, hydronephrosis, mass, or significant cyst. RETROPERITONEUM: No mass or lymphadenopathy. AORTA: Visualized abdominal aorta normal in size and configuration. No stenosis or aneurysm. BOWEL/MESENTERY: Normal. No bowel dilatation or wall thickening. No mesenteric stranding or fluid. ABDOMINAL WALL: Normal. BONES: Normal. CHEST: Small right and trace left pleural effusions with adjacent atelectasis. PERITONEUM: Trace perihepatic free fluid. IMPRESSION: Nodular cirrhotic liver with mild central intrahepatic biliary dilatation. Distal common bile duct tapering with upstream mild dilatation and some beaded intrahepatic ducts, suspicious for primary sclerosing cholangitis. Gallbladder distension with diffusely edematous wall thickening, likely secondary to biliary obstruction. Small right and trace left pleural effusions with adjacent atelectasis. Trace perihepatic free fluid. Recommend contrast-enhanced MRI/MRCP or ERCP for detailed evaluation. /Dema DICTATED BY: SILVERIO PATTON MD DATE: 02/09/251047 ELECTRONICALLY SIGNED BY: SILVERIO PATTON MD DATE: 02/09/251047 [place] [address] [address] IMAGING REPORT Signed PATIENT: JANINE BUENO MR#: [id number] : 1990 SEX: F AGE: 34 LOCATION: EDHIP ORDER 1418 STATUS: ADM IN REPORT#: [id number] SERVICE 1416 REASON: Upper GI bleed, assess for cirrhosis, perform with portal doppler ORDERING PHYSICIAN: YOLANDA AGOSTO MD PROCEDURE: ABDOMEN - US ABDOMINAL COMPLETE US ABDOMINAL COMPLETE REASON: Upper GI bleed, assess for cirrhosis, perform with portal doppler COMPARISON: None FINDINGS: Liver has lobulated contour with coarse echotexture with nodular changes suggesting of cirrhosis. The liver length is 14.1 cm.. There are no focal mass lesions. The liver is not enlarged. The portal vein has a hepatopetal. Flow There is a normal-appearing gallbladder. The gallbladder wall thickness is 0.3 cm. The common bile duct measures 0.5 cm. The common bile duct measures 0.5 cm. Kidneys appear normal in size and appearance. The right kidney measures 10.2 x 4.5 x 4.4 cm and the left kidney measures 11.7 x 4.4 x 4.6 cm. There is no evidence of mass, stone or hydronephrosis. Spleen and common duct appear normal. Aorta and inferior vena cava appear normal. The pancreas appears normal as well. The tail of the pancreas is obscured by overlying bowel gas. IMPRESSION: Liver has lobulated contour suggesting of cirrhosis Otherwise a normal abdominal sonogram.. DICTATED BY: PARUL GAVIRIA MD DATE: 02/06/25 1535 ELECTRONICALLY SIGNED BY: PARUL GAIVRIA MD DATE: 02/06/25 1540 [place] [address] IMAGING REPORT Signed PATIENT: JANINE BUENO MR#: [id number] : 1990 SEX: F AGE: 34 LOCATION: 2DH ORDER 1332 STATUS: ADM IN REPORT#: [id number] SERVICE 1317 REASON: upper GI bleed, assess for cirrhosis with portal HTN, elevated ALK [id number]* ORDERING PHYSICIAN: YOLANDA AGOSTO MD PROCEDURE: ABD PEL WO - CT ABDOMEN/PELVIS W/O CONTRAST EXAM: CT Abdomen and Pelvis Without IV contrast CLINICAL HISTORY: upper GI bleed, assess for cirrhosis with portal HTN, elevated ALK [id number]* Need reading on Inpatient, pending discharge based on findings. TECHNIQUE: Axial computed tomography images of the abdomen and pelvis without intravenous contrast. CONTRAST: No IV contrast. COMPARISON: Compared with previous USG dated 02/06. FINDINGS: LUNG BASES: The lung bases appear clear. No pleural effusions are seen. LIVER: Liver measures 16 cm with nodular cirrhotic contour. GALLBLADDER AND BILE DUCTS: The gallbladder is grossly distended with trace pericholecystic free fluid. No radioopaque gallstones are seen. No biliary ductal dilatation is evident. PANCREAS: Unremarkable. SPLEEN: Unremarkable. ADRENAL GLANDS: Unremarkable. KIDNEYS, URETERS, AND BLADDER: The kidneys appear within normal limits. There is no hydronephrosis or hydroureter. No urinary calculi are seen. Urinary bladder is partially distended, limiting the evaluation. STOMACH AND BOWEL: Unremarkable appearance of the stomach and bowel. No evidence of bowel obstruction. No evidence suggesting enteritis or colitis. APPENDIX: Normal appendix. PERITONEUM: Mild meseteric fat stranding. No free air. LYMPH NODES: No lymphadenopathy is evident. REPRODUCTIVE: Unremarkable as visualized. VASCULATURE: No evidence of abdominal aortic aneurysm. BONES: No aggressive appearing osseous lesion. No acute osseous pathology evident. IMPRESSION: 1. Cirrhotic liver with nodular contour, measuring 16 cm. 2. Grossly distended gallbladder with trace pericholecystic free fluid. 3. No bowel obstruction or inflammation. Normal appendix. 4. No urinary calculi. No hydro process /Dema DICTATED BY: SILVERIO PATTON MD DATE: 02/09/251224 ELECTRONICALLY SIGNED BY: SILVERIO PATTON MD DATE: 02/09/251224 Assessment/Plan: ASSESSMENT: Variceal bleeding status post banding, POA Upper GI blood loss anemia, POA Acute on iron deficiency chronic anemia, POA Rule out decompensated cirrhosis of the liver, POA Abnormal LFTs, POA Family history of liver disease with father requiring liver transplantation, POA History of ulcerative colitis currently not on medication management, POA History of variceal bleeding in 2022 requiring banding, POA Possible allergic to Rocephin with hives in the ER Hx of allegic reaction to Propofol, POA Discharge Instructions: Follow up with PCP in 3-4 days. Follow up with Gastroenterology, Dr. Burrows in 2 weeks. Clear liquid Diet for 2-3 days then transition to GI soft diet. Avoid spicy, oily foods. Pantop 40mg once daily. Home Medications: Reported Medications Alpha Lipoic Acid (Alpha Lipoic Acid) 300 Mg Capsule, 300 MG PO DAILY, CAP 07/12/17 Glucosamine HCl (Glucosamine HCl) 500 Mg Tablet, 500 MG PO DAILY, TAB 07/12/17 Milk Thistle Seed Extract (Milk Thistle) 175 Mg Capsule, 175 MG PO DAILY, CAP 07/12/17 Cholecalciferol (Vitamin D3) 5,000 Unit Capsule, 5000 UNIT PO DAILY, CAP 07/12/17 Prasterone (Dhea) (Dhea 25) 25 Mg Capsule, 25 MG PO DAILY, CAP 07/12/17 [Omega3] No Conflict Check, 1200 MG PO DAILY 07/12/17 New Medications: Pantoprazole Sodium (Pantoprazole Sodium) 40 Mg Tablet.dr 1 TAB PO DAILY for 30 Days, #30 TAB 0 Refills Levofloxacin (Levofloxacin) 500 Mg Tablet 1 TAB PO DAILY for 5 Days, #5 TAB 0 Refills Multivitamins,Therapeutic (Multivitamin Tablet) 400 Mcg Tab 1 TAB PO DAILY, #30 TAB Continued Medications: Alpha Lipoic Acid (Alpha Lipoic Acid) 300 Mg Capsule 300 MG PO DAILY, CAP Cholecalciferol (Vitamin D3) 5,000 Unit Capsule 5000 UNIT PO DAILY, CAP Glucosamine HCl (Glucosamine HCl) 500 Mg Tablet 500 MG PO DAILY, TAB Milk Thistle Seed Extract (Milk Thistle) 175 Mg Capsule 175 MG PO DAILY, CAP [Omega3] () 1200 MG PO DAILY Prasterone (Dhea) (Dhea 25) 25 Mg Capsule 25 MG PO DAILY, CAP Time spent arranging discharge: 31-60 minutes ATTESTATION BY PHYSICIAN I have seen and examined the patient. I reviewed the documentation, medical decision making, and treatment plan as noted by the resident physician above. I agree with the findings and plan of care. Yahir Tarango MD, SHAJI MD Feb 09, 2025 16:55 FRANKIE BALDWIN MD Feb 09, 2025 17:23
[2025-02-09] MEDS ORDERED: PANT40TA54 PO (17:20)
[2025-02-09] MEDS ORDERED: LEVO-70 PO (17:20)
[2025-02-09] MEDS ORDERED: MVIT PO (17:20)
[2025-02-10 05:11] LABS: HEPATITIS A ANTIBODY TOTAL Negative (Negative)
[2025-02-10 23:09] LABS: ALPHA-1-ANTITRYPSIN 154 mg/dL (100-188)
== END 2025-02-09 20:30 | disposition home or self-care (01) | DRG 432 ==
LOC: EDH 11:03 → EDHIP 12:56 → 2DH 17:35
PROVIDERS: ADMIT Internal Medicine; ATTEND Internal Medicine
PROC: 06L38CZ Occlusion of Esophageal Vein with Extraluminal Device, Via Natural or Artificial Opening Endoscopic (ICD-10-PCS; principal; 2025-02-06)
PROC: 30233N1 Transfusion of Nonautologous Red Blood Cells into Peripheral Vein, Percutaneous Approach (ICD-10-PCS; 2025-02-07)
PROC: 0DJ08ZZ Inspection of Upper Intestinal Tract, Via Natural or Artificial Opening Endoscopic (ICD-10-PCS; 2025-02-09)
DX: K74.60 Unspecified cirrhosis of liver (principal); I85.11 Secondary esophageal varices with bleeding; D62 Acute posthemorrhagic anemia; K51.911 Ulcerative colitis, unspecified with rectal bleeding; K76.6 Portal hypertension; D50.9 Iron deficiency anemia, unspecified; D75.839 Thrombocytosis, unspecified; K29.00 Acute gastritis without bleeding; K31.89 Other diseases of stomach and duodenum; Z80.41 Family history of malignant neoplasm of ovary; Z82.49 Family history of ischemic heart disease and other diseases of the circulatory system; Z83.3 Family history of diabetes mellitus
CPT/HCPCS: 36415; 43235; 43244; 74176; 74181; 76700; 80048; 80053; 80076; 82103; 82104; 82390; 82550; 82728; 82787; 82977; 83516; 83540; 83550; 83605; 83690; 84132; 84484; 84703; 85014; 85018; 85025; 85610; 85730; 86015; 86038; 86215; 86235; 86255; 86381; 86704; 86705; 86706; 86707; 86708; 86709; 86803; 86850; 86900; 86901; 86923; 87040; 87340; 87350; 93005; 93306; 93356; 94664; 96374; 96375; 99291; A4606; G0378; J0456; J0696; J1200; J1756; J1956; J2003; J2354; J2405; J2470; J2704; J3411; J3480; J7030; J7042; J7050; P9016; A4215; A4222; A4223; A4620; A4657; J3490

== ENCOUNTER → 2025-03-18 | Outpatient (CLI) | payer OTHER ==
[~2025-03-18] MED LIST changes: +GADOTERATE MEGLUMINE 10 MMOL/20 ML VIAL IV ONE; +LEVO-70 PO; +MVIT PO; +PANT40TA54 PO
--- NOTE | 2025-03-18 16:30 | HMCIMG ---
EXAM: MR Abdomen with Intravenous Contrast (including MRCP) CLINICAL HISTORY: Abnormal prior MRCP; suspected sclerosing cholangitis; follow?up TECHNIQUE: Multisequence, multiplanar magnetic resonance images of the abdomen were obtained before and after intravenous contrast, including 3D MRCP and multiphase dynamic post?contrast imaging. CONTRAST: 11 mL Clariscan administered intravenously. COMPARISON: MRCP dated 02/08/2025. CT abdomen/pelvis without contrast dated 02/06/2025. FINDINGS LOWER THORAX No pleural effusion. Previously described trace bilateral pleural effusions and subpleural atelectasis have resolved. LIVER Liver is enlarged ( 17.7 cm) with a nodular contour compatible with cirrhosis. 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 Mild periportal cuffing is present. Along segments V???VIII, there is an ill?defined T2/STIR hyperintense region measuring up to approximately 5.4 x 4.8 cm that demonstrates early phase hypoenhancement relative to background liver with gradual progressive filling on delayed phases, without definite washout or discrete capsule formation. This abnormality extends to the liver surface over segments V???VIII and shows greater surface irregularity and capsular hyperenhancement than the remainder of the cirrhotic liver, favoring confluent fibroinflammatory/fibrotic change rather than a well?circumscribed mass. GALLBLADDER AND BILE DUCTS / MRCP Gallbladder wall thickening previously up to 1.1 cm has resolved; no gallstones are identified. Common bile duct measures approximately 0.9 cm with smooth tapering at the ampullary end. Minimal intrahepatic ductal dilatation with a beaded configuration is again present; no dominant extrahepatic high?grade stricture or discrete intraductal mass is evident. PANCREAS Normal in size and signal. No pancreatic duct dilatation or focal mass. SPLEEN Normal in size and signal; no focal lesion. ADRENAL GLANDS Unremarkable bilaterally. KIDNEYS Normal in size and contour. No hydronephrosis or focal renal mass. STOMACH AND BOWEL Within the limits of this study, no bowel obstruction or definite mural mass is seen. LYMPH NODES No pathologically enlarged abdominal lymph nodes. VASCULATURE Abdominal aorta and major branches are normal in caliber. Portal and hepatic veins are patent. PERITONEUM / FLUID Previously seen trace perihepatic fluid has resolved. No ascites. 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 * Ill?defined T2/STIR hyperintense, early hypoenhancing region with gradual delayed filling, extending from segments V through VIII with accentuated surface irregularity and capsular hyperenhancement relative to the remainder of the cirrhotic liver, most in keeping with confluent fibrosis/fibroinflammatory change in chronic PSC; in this clinical context and age, owen differentials include confluent hepatic fibrosis (favored), mass?forming cholangiocarcinoma with atypical enhancement pattern, and less likely atypical hepatocellular carcinoma, for which further management should be guided by multidisciplinary clinical, laboratory, and, if indicated, tissue correlation. * Common bile duct borderline enlarged at approximately 0.9 cm with smooth distal tapering and no dominant extrahepatic stricture or obstructing mass, and no current gallbladder wall edema or cholelithiasis. /[place]
== END | disposition home or self-care (01) ==
LOC: RAH 07:38
PROVIDERS: ATTEND Internal Medicine Gastroenterology
DX: R16.0 Hepatomegaly, not elsewhere classified (principal); J98.11 Atelectasis; R93.2 Abnormal findings on diagnostic imaging of liver and biliary tract
CPT/HCPCS: 74183; A9575